=== PATIENT | female | born 1960 | race Caucasian/White ===

== ENCOUNTER → 2018-02-23 | Outpatient (CLI) | payer OTHER ==
[~2018-02-23] MED LIST: BUPR-83 PO; CHOL20005 PO; MULT-506 PO; SERT50TA PO; SYN125 PO
[2018-02-23 12:10] LABS: BASO % 0.7 %; BASO ABS # 0.03 K/uL (0-0.2); EOS % 2.5 %; EOS ABS # 0.11 K/uL (0-0.5); HEMATOCRIT 42.4 % (37-47); HEMOGLOBIN 14.2 g/dL (12.0-16.0); IG# 0.02 K/uL (0.00-0.02); LYMPH ABS # 1.63 K/uL (1.2-3.4); MEAN CELL VOLUME 94.2 fL (80-100); MEAN CORPUSCULAR HEMOGLOBIN 31.6 pg (25-34); MEAN CORPUSCULAR HGB CONC 33.5 g/dl (32-36); MEAN PLATELET VOLUME 9.7 fL (7.4-10.4); MONO % 7.3 %; MONO ABS # 0.32 K/uL (0.11-0.59); NEUT ABS # 2.29 K/uL (1.4-6.5); PLATELET COUNT 194 K/uL (130-400); RED CELL DISTRIBUTION WIDTH CV 13.2 % (11.5-14.5); RED CELL DISTRIBUTION WIDTH SD 45.5 fL (36.4-46.3)
[2018-02-23 12:47] LABS: ALBUMIN 3.7 gm/dl (3.4-5.0); ALT/SGPT 52 U/L (12-78); AST/SGOT 28 U/L (15-37); BLOOD UREA NITROGEN 15 mg/dl (7-18); CALCIUM 8.9 mg/dl (8.5-10.1); CARBON DIOXIDE 29 mmol/L (21-32); CHOLESTEROL 188 mg/dl (0-200); CREATININE 0.77 mg/dl (0.60-1.20); GLUCOSE 88 mg/dl (70-99); POTASSIUM 4.2 mmol/L (3.5-5.1); SODIUM 140 mmol/L (136-145)
[2018-02-23 12:57] LABS: ALKALINE PHOSPHATASE 74 U/L (45-117); LDL CHOLESTEROL CALCULATED 98 mg/dl; TOTAL PROTEIN 7.8 gm/dl (6.4-8.2)
== END | disposition home or self-care (01) ==
LOC: C.LAB1850 10:29
PROVIDERS: ATTEND Nurse Practitioner
DX: Z13.220 Encounter for screening for lipoid disorders (principal); Z13.228 Encounter for screening for other metabolic disorders; E03.9 Hypothyroidism, unspecified

== ENCOUNTER 2021-10-30 07:15 | Inpatient (IN) ==
[2021-10-30] MEDS ORDERED: dexAMETHasone**PF** 10 MG/ML VIAL IV ONE (07:56)
[2021-10-30] MEDS ORDERED: SODIUM CHLORIDE 0.9% 1000ML 1,000 ML IV ONE (07:56)
[2021-10-30] MEDS ORDERED: ONDANSETRON INJ 2 MG/ML 2 ML VIAL IV STA (07:56)
--- NOTE | 2021-10-30 08:29 | Emergency Department Note ---
History of Present Illness General Chief complaint: Dizziness Stated complaint: COVID+,DIZZY,NAUSEA Time Seen by Provider: 10/30/21 07:40 Source: patient Mode of arrival: ambulatory Limitations: no limitations History of Present Illness Maximum Pain Intensity: 10 This patient is a 61-year-old female who presents to the emergency department for evaluation of shortness of breath and COVID-19. Patient states that she was diagnosed with COVID-19 10 days ago. She states she has been feeling short of breath, especially with any exertion. She is having difficulty getting around at home. She states that she has been vomiting and has not kept anything down in 5 to 6 days. She has had some general fatigue, body aches and fevers. She was seen here a few days ago and sent home. She states that she is not feeling any better and feels her symptoms are worsening. She has not been checking her oxygen levels at home. She states she has been using nausea medication but it is not helping. Patient did not receive a COVID-19 vaccination. Home Medications Medication Instructions Recorded Confirmed Type albuterol sulfate 90 mcg/actuation 2 puff INHALATION DAILY 10/30/21 10/30/21 History aerosol inhaler alendronate 70 mg tablet 70 mg PO WK 10/30/21 10/30/21 History benzonatate 100 mg capsule 100 mg PO DAILY PRN 10/30/21 10/30/21 History celecoxib 200 mg capsule 200 mg PO DAILY 10/30/21 10/30/21 History levothyroxine 125 mcg tablet 125 mcg PO DAILY 10/30/21 10/30/21 History ondansetron 4 mg disintegrating 4 mg PO DAILY PRN 10/30/21 10/30/21 History tablet Allergies Allergy/AdvReac Type Severity Reaction Status Date / Time morphine Allergy Mild ITCHING Verified 09/01/16 21:42 latex Allergy Unknown RASH Verified 09/01/16 21:42 Past Med/Surg History Medical History Hypothyroid Kidney stones Psoriatic arthritis Surgical History H/O arthroscopic knee surgery Family History (Updated 10/30/21 @ 14:45 by MADDISON Brown) Father Diabetes Heart disease Social History (Updated 10/30/21 @ 14:46 by MADDISON Brown) Smoking Status: Former smoker Second Hand Exposure: No; Hx Alcohol Use: No Hx Substance Use: No Preferred Language: Yi Communication Ability: Effective Screen Printer Required: No Beliefs That Will Affect Care: None Current Living Situation: Alone Feels Safe at Home: Yes Safety Concerns: Feels Safe At This Time Assistive Devices: Denture - Upper and Glasses Review of Systems A total of 10 systems reviewed and were otherwise negative Physical Exam Vital Signs Vital Signs - 24 hr 10/30/21 07:18 10/30/21 08:07 10/30/21 08:46 Temperature 37.1 C Temperature Source Skin Pulse Rate 95 H 95 H Pulse Rate from SpO2 Sensor Pulse Rhythm Regular Respiratory Rate 18 18 Blood Pressure 132/88 Blood Pressure Mean 102 Pulse Oximetry 91 97 97 Oxygen Delivery Method Room Air Nasal Cannula Nasal Cannula Oxygen Flow Rate 2 2 Sepsis Recent Fever Within 48 Hours No Sepsis New/Unexplained Change in Mental Status No Sepsis Action Taken by Nursing No Action Required 10/30/21 08:52 10/30/21 09:00 10/30/21 09:30 Temperature Temperature Source Pulse Rate 84 83 83 Pulse Rate from SpO2 Sensor 83 84 86 Pulse Rhythm Respiratory Rate 25 H 27 H 26 H Blood Pressure 135/82 134/92 142/88 H Blood Pressure Mean 99 106 106 Pulse Oximetry 96 98 95 Oxygen Delivery Method Nasal Cannula Oxygen Flow Rate 2 Sepsis Recent Fever Within 48 Hours Sepsis New/Unexplained Change in Mental Status Sepsis Action Taken by Nursing VITALS: Vitals are noted on the nurse's note and reviewed by myself. GENERAL: This is a 61-year-old female, in mild distress, uncomfortable appear ing. SKIN: The skin was without rashes. HEAD: Normocephalic atraumatic. EARS: External auditory canals clear, tympanic membranes pearly [place] without erythema or effusion bilaterally. EYES: Pupils equal round and reactive to light and accommodation. NOSE: Patent, turbinates without inflammation or discharge. MOUTH: Mucous membranes dry. NECK: Supple without nuchal rigidity. No lymphadenopathy. HEART: Regular rate and rhythm without murmurs gallops or rubs. LUNGS: Breath sounds diminished throughout. ABDOMEN: Positive bowel sounds x 4. Soft, nontender to palpation. No guarding or rebound tenderness. NEURO: Patient was alert and oriented to person place and time. Course Administered Medications Acetaminophen (Acetaminophen 325 Mg Tab) 650 mg PO Q4H PRN PRN Reason: pain/fever Stop: 11/29/21 17:27 Last Admin: 10/30/21 18:26 Dose: 650 mg Documented by: [id number] Enoxaparin Sodium (Enoxaparin Inj 40 Mg/0.4 Ml Syr) 40 mg SQ Q24H SUZANNE Stop: 11/29/21 14:39 Last Admin: 10/30/21 16:55 Dose: 40 mg Documented by: [id number] Azithromycin 500 mg/ Dextrose 255 mls @ 125 mls/hr IV DAILY SUZANNE Stop: 11/06/21 10:59 Last Infusion: 10/30/21 14:15 Dose: 0 mls/hr Documented by: [id number] Admin: 10/30/21 11:54 Dose: 125 mls/hr Documented by: [id number] Discontinued Medications Acetaminophen (Acetaminophen 500 Mg Tab) 1,000 mg PO NOW STA Stop: 10/30/21 11:51 Last Admin: 10/30/21 11:53 Dose: 1,000 mg Documented by: [id number] Acetaminophen (Acetaminophen 500 Mg Tab) Confirm Administered Dose 1,000 mg .ROUTE .STK-MED ONE Stop: 10/30/21 11:53 Last Admin: 10/30/21 11:54 Dose: Not Given Documented by: [id number] Ceftriaxone Sodium (Ceftriaxone Sodium 1000mg/50ml D5w) Confirm Administered Dose 1,000 mg IV .STK-MED ONE Stop: 10/30/21 11:31 Last Admin: 10/30/21 11:38 Dose: 1,000 mg Documented by: [id number] Dexamethasone Sodium Phosphate (DexamethasonePf 10 Mg/Ml Vial) 6 mg IV NOW ONE Stop: 10/30/21 07:57 Last Admin: 10/30/21 08:37 Dose: 6 mg Documented by: [id number] Sodium Chloride (Nss 1000ml) 1,000 mls @ 999 mls/hr IV .Q1H1M ONE Stop: 10/30/21 08:56 Last Infusion: 10/30/21 09:38 Dose: 0 mls/hr Documented by: [id number] Admin: 10/30/21 08:37 Dose: 999 mls/hr Documented by: [id number] Remdesivir 200 mg/ Sodium (Chloride) 250 mls @ 125 mls/hr IV ONE STA; Protocol Stop: 10/30/21 12:47 Last Infusion: 10/30/21 16:57 Dose: 0 mls/hr Documented by: [id number] Admin: 10/30/21 14:16 Dose: 125 mls/hr Documented by: [id number] Ondansetron HCl (Ondansetron Inj 2 Mg/Ml 2 Ml Vial) 4 mg IV NOW STA Stop: 10/30/21 07:57 Last Admin: 10/30/21 08:37 Dose: 4 mg Documented by: [id number] Sodium Chloride (Sodium Chloride 0.9% 10ml Flush) 30 ml IV Q24H SUZANNE Stop: 11/03/21 10:46 Last Admin: 10/30/21 16:55 Dose: 30 ml Documented by: [id number] Medical Decision Making Differential Diagnosis COVID-19, reactive airway disease, pneumonia, pneumothorax, COPD, CHF, infections, cardiac ischemia, pulmonary embolism, musculoskeletal, gastrointestinal, as well as other pathologies. Medical Records Attestation: I reviewed the patient's medical records. Home Medications Current Medication List: was personally reviewed by me Laboratory Data Attestation: I reviewed the patient's lab results. Result diagrams: 10/30/21 08:32 10/30/21 08:32 Lab Results 10/30/21 10/30/21 10/30/21 Range/Units 08:32 08:32 08:32 WBC 4.30 L (4.8-10.8) K/uL RBC 4.47 (4.2-5.4) M/uL Hgb 13.7 (12.0-16.0) g/dL Hct 41.4 (37-47) % MCV 92.6 (80-100) fL MCH 30.6 (25-34) pg MCHC 33.1 (32-36) g/dL RDW Std Deviation 45.0 (36.4-46.3) fL RDW Coeff of Bailey 13.2 (11.5-14.5) % Plt Count 131 (130-400) K/uL MPV 9.6 (7.4-10.4) fL Immature Gran % (Auto) 0.7 % Neut % (Auto) 82.1 % Lymph % (Auto) 13.3 % [place] % (Auto) 3.7 % Eos % (Auto) 0.0 % Baso % (Auto) 0.2 % Neut # (Auto) 3.53 (1.4-6.5) K/uL Lymph # (Auto) 0.57 L (1.2-3.4) K/uL [place] # (Auto) 0.16 (0.11-0.59) K/uL Eos # (Auto) 0.00 (0-0.5) K/uL Baso # (Auto) 0.01 (0-0.2) K/uL Immature Gran # (Auto) 0.03 H (0.00-0.02) K/uL D-Dimer (0-500) ug/L FEU Sodium 139 (136-145) mmol/L Potassium 3.9 (3.5-5.1) mmol/L Chloride 107 (98-107) mmol/L Carbon Dioxide 26 (21-32) mmol/L Anion Gap 6.0 (3-11) BUN 10 (7-18) mg/dl Creatinine 0.65 (0.6-1.2) mg/dl Est Cr Clr Drug Dosing Not Reportable Est GFR ( Amer) 111.1 ml/min Est GFR (Non-Af Amer) 95.8 ml/min BUN/Creatinine Ratio 15.4 (10-20) Glucose 115 H (70-99) mg/dl Calcium 8.3 L (8.5-10.1) mg/dl Total Bilirubin 0.5 (0.2-1) mg/dl AST 58 H (15-37) U/L ALT 43 (12-78) Alkaline Phosphatase 55 (45-117) U/L C-Reactive Protein 10.80 H (0-0.29) mg/dl Total Protein 7.4 (6.4-8.2) gm/dl Albumin 2.9 L (3.4-5.0) gm/dl Globulin 4.5 H (2.5-4.0) gm/dl Albumin/Globulin Ratio 0.6 L (0.9-2) Procalcitonin 2.38 H (0-0.5) ng/ml Specimen Hemolysis 10/30/21 Range/Units 08:32 WBC (4.8-10.8) K/uL RBC (4.2-5.4) M/uL Hgb (12.0-16.0) g/dL Hct (37-47) % MCV (80-100) fL MCH (25-34) pg MCHC (32-36) g/dL RDW Std Deviation (36.4-46.3) fL RDW Coeff of Bailey (11.5-14.5) % Plt Count (130-400) K/uL MPV (7.4-10.4) fL Immature Gran % (Auto) % Neut % (Auto) % Lymph % (Auto) % [place] % (Auto) % Eos % (Auto) % Baso % (Auto) % Neut # (Auto) (1.4-6.5) K/uL Lymph # (Auto) (1.2-3.4) K/uL [place] # (Auto) (0.11-0.59) K/uL Eos # (Auto) (0-0.5) K/uL Baso # (Auto) (0-0.2) K/uL Immature Gran # (Auto) (0.00-0.02) K/uL D-Dimer 730 H* (0-500) ug/L FEU Sodium (136-145) mmol/L Potassium (3.5-5.1) mmol/L Chloride (98-107) mmol/L Carbon Dioxide (21-32) mmol/L Anion Gap (3-11) BUN (7-18) mg/dl Creatinine (0.6-1.2) mg/dl Est Cr Clr Drug Dosing Est GFR ( Amer) ml/min Est GFR (Non-Af Amer) ml/min BUN/Creatinine Ratio (10-20) Glucose (70-99) mg/dl Calcium (8.5-10.1) mg/dl Total Bilirubin (0.2-1) mg/dl AST (15-37) U/L ALT (12-78) Alkaline Phosphatase (45-117) U/L C-Reactive Protein (0-0.29) mg/dl Total Protein (6.4-8.2) gm/dl Albumin (3.4-5.0) gm/dl Globulin (2.5-4.0) gm/dl Albumin/Globulin Ratio (0.9-2) Procalcitonin (0-0.5) ng/ml Specimen Hemolysis Imaging Data Attestation: I personally reviewed and interpreted this imaging study as follows: Radiologist's Impression: Chest X-Ray 10/30/21 07:57 XR chest 1V portable CLINICAL HISTORY: covid, sob COMPARISON STUDY: Chest radiograph October 25, 2021. FINDINGS: There is no pneumothorax or pleural effusion. Cardiac size is within normal limits. Mediastinal contours are unremarkable. Moderate multifocal bilateral airspace opacities have developed since prior exam. IMPRESSION: Interval development of moderate bilateral airspace opacities c onsistent with viral pneumonia. Radiographic follow-up to ensure resolution is recommended. ACT 112: Negative or not required by law. Electronically signed by: Brandin Seymour M.D. 10/30/2021 8:28 AM MDM Narrative Continuous monitoring coordinator: Order was placed for continuous monitoring coordinator. Patient was placed on the monitoring coordinator. Patient was noted to be in normal sinus rhythm at an initial rate of 84 bpm. The patient is a 61-year-old female who presents today complaining of shortness of breath. Patient already tested positive for COVID-19. Labs are consistent with this, showing a leukopenia. There were no concerning electrolyte abnormalities. Procalcitonin elevated at 2.38. CRP elevated at 10.8. Chest x- ray consistent with COVID-19 pneumonia. Patient was found to be slightly hypoxic at rest, 89%, however with very few steps she desaturated into the low 80s. She was placed on oxygen via nasal cannula, given dexamethasone and the case was discussed with the [facility]. Impression & Plan Pneumonia due to COVID-19 virus, Acute respiratory failure with hypoxia Discharge Plan Visit Data Chief Complaint: Dizziness Stated Complaint: COVID+,DIZZY,NAUSEA ED Provider: Armando York ED Midlevel Provider: Lorraine Medrano Discharge Problem: Pneumonia due to COVID-19 virus, Acute respiratory failure with hypoxia
--- NOTE | 2021-10-30 08:30 | XRay Report ---
XR chest 1V portable CLINICAL HISTORY: covid, sob COMPARISON STUDY: Chest radiograph October 25, 2021. FINDINGS: There is no pneumothorax or pleural effusion. Cardiac size is within normal limits. Mediast inal contours are unremarkable. Moderate multifocal bilateral airspace opacities have developed since prior exam. IMPRESSION: Interval development of moderate bilateral airspace opacities consistent with viral pneu monia. Radiographic follow-up to ensure resolution is recommended. ACT 112: Negative or not required by law. Electronically signed by: Brandin Seymour M.D. 10/30/2021 8:28 AM
[2021-10-30 08:50] LABS: Hematocrit (blood only) 41.4 % (37-47); Hemoglobin 13.7 g/dL (12.0-16.0); Mean Corpuscular Hemoglobin 30.6 pg (25-34); Mean Corpuscular Hgb Conc 33.1 g/dL (32-36); Mean Corpuscular Volume 92.6 fL (80-100); Mean Platelet Volume 9.6 fL (7.4-10.4); Platelet Count 131 K/uL (130-400); RDW Coefficient of Variation 13.2 % (11.5-14.5); Red Blood Count 4.47 M/uL (4.2-5.4)
[2021-10-30 09:12] LABS: D Dimer 730 ug/L FEU (0-500)
[2021-10-30 09:19] LABS: Basophils # (auto) 0.01 K/uL (0-0.2); Basophils % (auto) 0.2 %; Immature Granulocytes # (auto) 0.03 K/uL (0.00-0.02); Immature Granulocytes % (auto) 0.7 %; Lymphocytes # (auto) 0.57 K/uL (1.2-3.4); Lymphocytes % (auto) 13.3 %; Monocytes # (auto) 0.16 K/uL (0.11-0.59); Monocytes % (auto) 3.7 %; Neutrophils # (auto) 3.53 K/uL (1.4-6.5); Neutrophils % (auto) 82.1 %
[2021-10-30 09:25] LABS: Alanine Aminotransferase 43 (12-78); Albumin Globulin Ratio 0.6 (0.9-2); Albumin Level 2.9 gm/dl (3.4-5.0); Alkaline Phosphatase 55 U/L (45-117); Aspartate Aminotransferase 58 U/L (15-37); BUN Creatinine Ratio 15.4 (10-20); Bilirubin,Total 0.5 mg/dl (0.2-1); Blood Urea Nitrogen 10 mg/dl (7-18); Calcium 8.3 mg/dl (8.5-10.1); Carbon Dioxide 26 mmol/L (21-32); Chloride 107 mmol/L (98-107); Est GFR (African American) 111.1 ml/min; Est GFR (Non-African American) 95.8 ml/min; Globulin 4.5 gm/dl (2.5-4.0); Glucose 115 mg/dl (70-99); Potassium 3.9 mmol/L (3.5-5.1); Sodium 139 mmol/L (136-145); Total Protein 7.4 gm/dl (6.4-8.2)
[2021-10-30] MEDS ORDERED: SODIUM CHLORIDE 0.9% 10ML FLUSH IV SCH (10:45)
[2021-10-30] MEDS ORDERED: cefTRIAXone SODIUM 1,000 MG in DEXTROSE 5% 50 ML IV SCH (10:45)
[2021-10-30] MEDS ORDERED: REMDESIVIR 200 MG in SODIUM CHLORIDE 0.9% 210 ML IV STA (10:48)
[2021-10-30] MEDS ORDERED: cefTRIAXone SODIUM 1000MG/50ML D5W IV ONE (11:30)
[2021-10-30] MEDS ORDERED: ACETAMINOPHEN 500 MG TAB PO STA (11:50)
[2021-10-30] MEDS ORDERED: ACETAMINOPHEN 500 MG TAB ONE (11:52)
[2021-10-30] MEDS: AZITHROMYCIN 500 MG in DEXTROSE 5% 250 ML IV SCH (11:54)
[2021-10-30 12:38] LABS: Influenza A virus by PCR Negative (Neg); Influenza B virus by PCR Negative (Neg); RSV by PCR Negative (Neg)
[2021-10-30 12:40] LABS: SARS CoV2 RNA(COVID-19) InHosp POSITIVE (Negative)
[2021-10-30] MEDS ORDERED: BENZONATATE 100 MG CAPSULE PO PRN (14:40)
[2021-10-30] MEDS ORDERED: ALBUT/IPRATROP 3MG/0.5MG NEB 3 ML VIAL NEB PRN (14:40)
[2021-10-30] MEDS ORDERED: ONDANSETRON INJ 2 MG/ML 2 ML VIAL IV PRN (14:40)
--- NOTE | 2021-10-30 14:42 | History & Physical Report ---
Date of Service October 30, 2021 Assessment & Plan (1) Acute respiratory failure with hypoxia: (2) Pneumonia due to COVID-19 virus: Plan: -Admit to [facility] with telemetry -Patient presenting from home with reports of worsening shortness of breath, hypoxia, nausea. Per her report, tested positive on 10/23 at [facility] for COVID-19. -In the ED, patient was hypoxic on room air with ambulation at 84%, currently saturating well on 2 L of oxygen via nasal cannula -CXR consistent with COVID-19 pneumonia -S/p dexamethasone 6 mg IV in ED, continue dexamethasone 6 mg IV daily -Start remdesivir -Given elevated procalcitonin, will start IV ceftriaxone and IV azithromycin -Continue supportive care with incentive spirometer, flutter valve, as needed nebs -Noted mildly elevated D-dimer, patient reports allergy to IV contrast dye. Will hold on CTA at this time. If hypoxia worsens, consider CTA with premedication. (3) Hypothyroidism: Plan: -Continue levothyroxine (4) Psoriatic arthritis: Plan: -Follows with Dr. Moore -Patient reports that Xeljanz was stopped about 2 months ago (5) DVT prophylaxis: Admission and Anticipated Discharge Date Admission Date: October 30, 2021 History of Present Illness Chief Complaint: Shortness of breath Primary Care Provider: Sandy Laboy MD 61-year-old female with PMH hypothyroidism, psoriatic arthritis, and other problems to below who presents the ED for evaluation of shortness of breath. Patient has a positive for COVID-19 on 10/23 at [facility] per her report. Patient reports being sick a few days prior to that. Symptoms initially were generalized weakness, poor appetite, nausea. Patient seen in the ED on 10/25 and had an unremarkable work-up and was discharged home with pulse oximeter. She did not receive COVID-19 directed therapies during that ED visit. Patient reports that today her oxygen levels were dropping down into the 80s and she has severe shortness of breath with exertion. She continues to have a very poor appetite with nausea and dry heaves. Reports a dry nonproductive cough. No chest pain. Denies lightheadedness, dizziness, diaphoresis, syncopal events. No abdominal pain. Denies fevers and chills. No urinary symptoms. In the ED, patient was hypoxic on room air with ambulation 84%, currently saturating well on 2 L of oxygen via nasal cannula. CXR shows Interval development of moderate bilateral airspace opacities consistent with viral pneumonia. Patient was given Tylenol, IV dexamethasone 6 mg, IV Zofran, IVF. Allergies Allergy/AdvReac Type Severity Reaction Status Date / Time morphine Allergy Mild ITCHING Verified 09/01/16 21:42 latex Allergy Unknown RASH Verified 09/01/16 21:42 Home Medications Medication Instructions Recorded Confirmed Type albuterol sulfate 90 mcg/actuation 2 puff INHALATION DAILY 10/30/21 10/30/21 History aerosol inhaler alendronate 70 mg tablet 70 mg PO WK 10/30/21 10/30/21 History benzonatate 100 mg capsule 100 mg PO DAILY PRN 10/30/21 10/30/21 History celecoxib 200 mg capsule 200 mg PO DAILY 10/30/21 10/30/21 History levothyroxine 125 mcg tablet 125 mcg PO DAILY 10/30/21 10/30/21 History ondansetron 4 mg disintegrating 4 mg PO DAILY PRN 10/30/21 10/30/21 History tablet Past Med/Surg History Medical History Hypothyroid Kidney stones Psoriatic arthritis Surgical History H/O arthroscopic knee surgery Family History (Updated 10/30/21 @ 14:45 by MADDISON Brown) Father Diabetes Heart disease Social History (Updated 10/30/21 @ 14:46 by MADDISON Brown) Smoking Status: Former smoker Second Hand Exposure: No; Hx Alcohol Use: No Hx Substance Use: No Preferred Language: Bruneian Communication Ability: Effective Bobbin Trucker Required: No Beliefs That Will Affect Care: None Current Living Situation: Alone Feels Safe at Home: Yes Safety Concerns: Feels Safe At This Time Assistive Devices: Denture - Upper and Glasses Review of Systems Review of Systems: ROS per HPI, all other systems reviewed and negative Physical Exam Physical Exam: Please refer to Dr. Alcaraz's addendum for physical exam Results & Data Results & Data ([facility]) Vital Signs (Past 12 Hours) Vital Signs Temp Pulse Pulse Resp BP BP Pulse Ox 10/30/21 14:00 72 26 H 124/84 93 10/30/21 13:35 79 54 H 10/30/21 13:27 37.6 C H 10/30/21 13:00 71 26 H 94 10/30/21 12:30 74 28 H 10/30/21 12:00 77 24 144/95 H 95 10/30/21 11:34 39.0 C H 82 81 22 134/85 94 10/30/21 11:30 83 19 134/85 94 10/30/21 11:00 76 28 H 95 10/30/21 10:30 80 26 H 131/78 95 10/30/21 10:10 93 10/30/21 09:30 83 26 H 142/88 H 95 10/30/21 09:00 83 27 H 134/92 98 10/30/21 08:52 84 25 H 135/82 96 10/30/21 08:46 95 H 18 97 10/30/21 08:07 97 10/30/21 07:18 37.1 C 95 H 18 132/88 91 Laboratory Results Laboratory Results - last 24 hr 10/30/21 10/30/21 10/30/21 08:32 08:32 08:32 WBC 4.30 L RBC 4.47 Hgb 13.7 Hct 41.4 MCV 92.6 MCH 30.6 MCHC 33.1 RDW Std Deviation 45.0 RDW Coeff of Bailey 13.2 Plt Count 131 MPV 9.6 Immature Gran % (Auto) 0.7 Neut % (Auto) 82.1 Lymph % (Auto) 13.3 [place] % (Auto) 3.7 Eos % (Auto) 0.0 Baso % (Auto) 0.2 Neut # (Auto) 3.53 Lymph # (Auto) 0.57 L [place] # (Auto) 0.16 Eos # (Auto) 0.00 Baso # (Auto) 0.01 Immature Gran # (Auto) 0.03 H D-Dimer Sodium 139 Potassium 3.9 Chloride 107 Carbon Dioxide 26 Anion Gap 6.0 BUN 10 Creatinine 0.65 Est Cr Clr Drug Dosing Not Reportable Est GFR ( Amer) 111.1 Est GFR (Non-Af Amer) 95.8 BUN/Creatinine Ratio 15.4 Glucose 115 H Calcium 8.3 L Total Bilirubin 0.5 AST 58 H ALT 43 Alkaline Phosphatase 55 C-Reactive Protein 10.80 H Total Protein 7.4 Albumin 2.9 L Globulin 4.5 H Albumin/Globulin Ratio 0.6 L Procalcitonin 2.38 H Specimen Hemolysis SARS-CoV-2 (PCR) Influenza Type A (PCR) Influenza Type B (PCR) RSV (RT-PCR) 10/30/21 10/30/21 08:32 11:41 WBC RBC Hgb Hct MCV MCH MCHC RDW Std Deviation RDW Coeff of Bailey Plt Count MPV Immature Gran % (Auto) Neut % (Auto) Lymph % (Auto) [place] % (Auto) Eos % (Auto) Baso % (Auto) Neut # (Auto) Lymph # (Auto) [place] # (Auto) Eos # (Auto) Baso # (Auto) Immature Gran # (Auto) D-Dimer 730 H* Sodium Potassium Chloride Carbon Dioxide Anion Gap BUN Creatinine Est Cr Clr Drug Dosing Est GFR ( Amer) Est GFR (Non-Af Amer) BUN/Creatinine Ratio Glucose Calcium Total Bilirubin AST ALT Alkaline Phosphatase C-Reactive Protein Total Protein Albumin Globulin Albumin/Globulin Ratio Procalcitonin Specimen Hemolysis SARS-CoV-2 (PCR) POSITIVE A* Influenza Type A (PCR) Negative Influenza Type B (PCR) Negative RSV (RT-PCR) Negative Diagnostic Findings Chest X-Ray 10/30/21 07:57 XR chest 1V portable CLINICAL HISTORY: covid, sob COMPARISON STUDY: Chest radiograph October 25, 2021. FINDINGS: There is no pneumothorax or pleural effusion. Cardiac size is within normal limits. Mediastinal contours are unremarkable. Moderate multifocal bilateral airspace opacities have developed since prior exam. IMPRESSION: Interval development of moderate bilateral airspace opacities consistent with viral pneumonia. Radiographic follow-up to ensure resolution is recommended. ACT 112: Negative or not required by law. Electronically signed by: Brandin Seymour M.D. 10/30/2021 8:28 AM Code Status & VTE Plan VTE Prophylaxis Plan VTE Prophylaxis will be ordered: Yes Supervising Physician Co-Signing Physician Notes Patient is a 61-year-old female with history of hypothyroidism, psoriatic arthritis and other medical problems presents with history of worsening shortness of breath, generalized weakness, poor appetite and nausea since last few days. While in ED she was found to be hypoxic, on room air. Also states having normal expectorant cough. Please review HPI for complete details of presentation. Chest x-ray showed development of moderate bilateral airspace opacities consistent with viral pneumonia. Blood work suggestive of mild leukopenia, D-dimer elevated at 730, mild elevation of AST 58, CRP 10.80, procalcitonin 2.38. He was tested positive for Covid. Physical Exam: Vitals signs as noted above General Appearance:Obese, no apparent distress Head: normocephalic, Atraumatic Eyes: normal inspection, EOMI Neck: supple, Trachea midline Respiratory/Chest: Decreased breath sounds, basal crackles, No accessory muscle use Cardiovascular: S1, S2, No murmur Abdomen/GI:Soft, Non tender, Bowel sounds present Extremities/Musculoskeletal:normal inspection, no edema Neurologic/Psych:AAOX3, grossly no focal neurological deficits Skin: normal color, warm Acute respiratory failure with hypoxia Multifocal COVID-19 pneumonia Agree with starting dexamethasone, remdesivir Oxygen supplementation as needed Lasix, nebs as needed Encouraged to perform Agree with antibiotics given elevated procalcitonin I personally reviewed the record. Patient is interviewed and examined at bedside. Patient's care is coordinated with Shannon Ng PEDIATRICS TEACHER. Please refer to the documentation above for details of patient's presentation and for discussion of other issues.
--- NOTE | 2021-10-30 16:02 | Electrocardiogram Report ---
Test Reason : Blood Pressure : / mmHG Vent. Rate : 088 BPM Atrial Rate : 088 BPM P-R Int : 160 ms QRS Dur : 088 ms QT Int : 362 ms P-R-T Axes : 055 -22 027 degrees QTc Int : 438 ms Normal sinus rhythm Possible Left atrial enlargement Borderline ECG When compared with ECG of 25-OCT-2021 17:41, T wave inversion now evident in Inferior leads Confirmed by Amandeep Levi ([id number]) on 10/30/2021 4:01:33 PM Referred By: REFERRED SELF Confirmed By:Amandeep Levi
[2021-10-30] MEDS: ENOXAPARIN INJ 40 MG/0.4 ML SYR SQ SCH (16:55)
[2021-10-30] MEDS: ACETAMINOPHEN 325 MG TAB PO PRN (18:26)
[2021-10-30] MEDS: cefTRIAXone SODIUM 2,000 MG in DEXTROSE 5% 50 ML IV SCH (23:14)
[2021-10-31 06:28] LABS: Hematocrit (blood only) 41.3 % (37-47); Hemoglobin 13.4 g/dL (12.0-16.0); Mean Corpuscular Hemoglobin 30.6 pg (25-34); Mean Corpuscular Hgb Conc 32.4 g/dL (32-36); Mean Corpuscular Volume 94.3 fL (80-100); Mean Platelet Volume 9.7 fL (7.4-10.4); Platelet Count 167 K/uL (130-400); RDW Coefficient of Variation 13.5 % (11.5-14.5); RDW Standard Deviation 46.7 fL (36.4-46.3); Red Blood Count 4.38 M/uL (4.2-5.4); White Blood Count 4.88 K/uL (4.8-10.8)
[2021-10-31] MEDS: LEVOTHYROXINE SODIUM 125 MCG TABLET PO SCH (06:39)
[2021-10-31 07:01] LABS: BUN Creatinine Ratio 16.9 (10-20); Calcium 8.5 mg/dl (8.5-10.1); Creatinine Clr Calc Pharmacy 83.8 ml/min; Est GFR (African American) 95.1 ml/min; Est GFR (Non-African American) 82.1 ml/min; Potassium 4.2 mmol/L (3.5-5.1)
[2021-10-31] MEDS: AZITHROMYCIN 500 MG in DEXTROSE 5% 250 ML IV SCH (07:30)
[2021-10-31] MEDS: dexAMETHasone 6 MG in SYRINGE 0 ML IV SCH (07:31)
[2021-10-31] MEDS: REMDESIVIR 100 MG in SODIUM CHLORIDE 0.9% 230 ML IV SCH (11:03)
[2021-10-31] MEDS ORDERED: guaiFENesin/CODEINE 100MG/10MG 5ML UDC PO STA (11:44)
--- NOTE | 2021-10-31 11:47 | Hospitalist Progress Note ---
Date of Service October 31, 2021 Assessment & Plan (1) Acute respiratory failure with hypoxia: Plan: Secondary to Covid pneumonia with possible superimposed bacterial pneumonia. Elevated procalcitonin on admission prompted coadministration of antibiotics and antivirals. Continue this along with dexamethasone. Supportive care with antitussives and Mucinex as requested. Prone as tolerated. Continue oxygen supplementation with goal saturation greater than 90%. (2) Pneumonia due to COVID-19 virus: Plan: Mildly elevated D-dimer noted on admission, 730. Patient reports allergy to IV contrast dye and CTA was deferred. D dimer is known to be elevated both in the setting of COVID infection and in a pneumonia. (3) Hypothyroidism: Plan: chronic, stable, Continue levothyroxine per home regimen. (4) Psoriatic arthritis: Plan: -chronic, stable -Follows with Dr. Moore -Patient reports that Xeljanz was stopped about 2 months ago (5) DVT prophylaxis: Plan: Lovenox Full Code Dispo-to home when medically stable Sharonda Tam DO [facility] Hospitalist Admission and Anticipated Discharge Date Admission Date: October 30, 2021 Subjective 61 yo F presents with covid pneumonia reports congestion and cough States she has a headache Tolerating p.o. Afebrile Denies significant shortness of breath and feels better since admission Review of Systems Review of Systems: All systems reviewed and negative except as indicated above. Physical Exam Physical Exam: CONSTITUTIONAL: WNWD, vitals as above, generally well- appearing, NAD EYES: normal conjunctivae, no scleral icterus ENT: external ear and nose normal, MMM NECK: trachea midline RESPIRATORY: clear to auscultation bilaterally, no crackles, rales or wheezes, normal respiratory effort CARDIOVASCULAR: regular rate and rhythm, S1 and 2 heard without murmurs, gallops or rubs, no JVD, no peripheral edema CHEST: inspection of chest was normal GASTROINTESTINAL: soft, nontender, ND, no guarding MUSCULOSKELETAL: strength 5/5 throughout, head is normocephalic and atraumatic SKIN: warm and dry NEUROLOGIC: No facial palsy, no dysarthria. CN 2-12 grossly intact, no sensory deficit, normal cognition, normal speech, no tremor, no gross focal deficit. PSYCHIATRIC: alert cooperative and oriented to person, place and time. Euthymic mood, makes good eye contact, language grossly intact, recent and remote memory grossly intact. Results & Data Results & Data ([facility]) Vital Signs (Past 12 Hours) Vital Signs Temp Pulse Pulse Resp BP BP Pulse Ox 10/31/21 09:18 55 L 10/31/21 08:17 37.0 C 67 16 146/87 H 93 10/31/21 04:12 68 18 155/78 H 96 Laboratory Results Short CBC 10/31/21 Range/Units 05:28 WBC 4.88 (4.8-10.8) K/uL Hgb 13.4 (12.0-16.0) g/dL Hct 41.3 (37-47) % Plt Count 167 (130-400) K/uL BMP 10/31/21 05:28 Sodium 141 Potassium 4.2 Chloride 108 H Carbon Dioxide 28 BUN 13 Creatinine 0.78 Glucose 118 H Calcium 8.5 Medications Administered Current Inpatient Medications Acetaminophen (Acetaminophen 325 Mg Tab) 650 mg PO Q4H PRN PRN Reason: pain/fever Stop: 11/29/21 17:27 Last Admin: 10/30/21 18:26 Dose: 650 mg Documented by: Albuterol (Albut/Ipratrop 3mg/0.5mg Neb 3 Ml Vial) 3 ml NEB Q4R PRN PRN Reason: shotnes of beath Stop: 11/29/21 14:39 Benzonatate (Benzonatate 100 Mg Capsule) 100 mg PO TID [facility] Stop: 11/30/21 13:59 Enoxaparin Sodium (Enoxaparin Inj 40 Mg/0.4 Ml Syr) 40 mg SQ Q24H [facility] Stop: 11/29/21 14:39 Last Admin: 10/30/21 16:55 Dose: 40 mg Documented by: Guaifenesin (Guaifenesin 600 Mg Tabcr) 1,200 mg PO Q12 [facility] Stop: 11/30/21 11:49 Guaifenesin/Codeine Phosphate (Guaifenesin/Codeine 200mg/20mg 10ml Udc) 10 ml PO Q6H PRN PRN Reason: Cough Stop: 11/30/21 11:43 Guaifenesin/Codeine Phosphate (Guaifenesin/Codeine 100mg/10mg 5ml Udc) 10 ml PO NOW STA Stop: 10/31/21 11:45 Azithromycin 500 mg/ Dextrose 255 mls @ 125 mls/hr IV DAILY [facility] Stop: 11/06/21 10:59 Last Infusion: 10/31/21 09:50 Dose: Infused Documented by: Ceftriaxone Sodium 2,000 mg/ (Dextrose) 70 mls @ 140 mls/hr IV Q24H [facility]; Protocol Stop: 11/06/21 22:59 Last Infusion: 10/30/21 23:51 Dose: Infused Documented by: Dexamethasone 6 mg/ Syringe 1.5 mls @ 1 mls/min IV DAILY [facility] Stop: 11/10/21 08:59 Last Admin: 10/31/21 07:31 Dose: 1 mls/min Documented by: Remdesivir 100 mg/ Sodium (Chloride) 250 mls @ 250 mls/hr IV Q24H [facility]; Protocol Stop: 11/03/21 12:59 Last Admin: 10/31/21 11:03 Dose: 250 mls/hr Documented by: Levothyroxine Sodium (Levothyroxine Sodium 125 Mcg Tablet) 125 mcg PO DAILYBB [facility] Stop: 11/30/21 06:29 Last Admin: 10/31/21 06:39 Dose: 125 mcg Documented by: Ondansetron HCl (Ondansetron Inj 2 Mg/Ml 2 Ml Vial) 4 mg IV Q6H PRN PRN Reason: Nausea Stop: 11/29/21 14:39 Sodium Chloride (Sodium Chloride 0.9% 10ml Flush) 30 ml IV Q24H [facility] Stop: 11/03/21 13:01
[2021-10-31] MEDS: SODIUM CHLORIDE 0.9% 10ML FLUSH IV SCH (12:15)
[2021-10-31] MEDS: BENZONATATE 100 MG CAPSULE PO SCH ×2 (12:53→22:04)
[2021-10-31] MEDS: guaiFENesin 600 MG TABCR PO SCH ×2 (12:54→22:04)
[2021-10-31] MEDS: ENOXAPARIN INJ 40 MG/0.4 ML SYR SQ SCH (15:32)
[2021-10-31] MEDS ORDERED: oxyCODONE HCL IR 5 MG TAB (IMMEDIATE RELEASE) PO STA (20:27)
[2021-10-31] MEDS ORDERED: methylPREDNISolone 40 MG in SYRINGE 0 ML IV STA (20:30)
--- NOTE | 2021-10-31 21:22 | CT Scan Report ---
CT head/brain wo con CLINICAL HISTORY: Evaluate for CVA COMPARISON STUDY: 09-05 CT DOSE: 537.48 mGy.cm TECHNIQUE: Standard CT of the Brain was performed without IV contrast. A dose lowering technique was utilized adhering to the principles of ALARA. FINDINGS: Extraaxial space: There is no evidence for subdural hematoma. There are no extra-axial fluid collecti ons. Ventricles and cisterns: The ventricles are normal in size and configuration. There is no evidence f or midline shift or mass effect. Parenchyma: There is no subarachnoid or intraparenchymal hemorrhage. There is no evidence for an acu te infarct or cerebral edema. There is homogeneous attenuation of the brain parenchyma. There are no gross mass lesions. Osseous structures: There is no evidence for an acute fracture. The visualized paranasal sinuses are clear. The mastoid air cells are clear bilaterally. Soft tissues: There is no evidence for focal soft tissue swelling. IMPRESSION: No acute intracerebral pathology. ACT 112: Negative or not required by law. Electronically signed by: Anoop Ashton M.D. 10/31/2021 9:21 PM
[2021-10-31 21:50] LABS: Hematocrit (blood only) 40.6 % (37-47); Hemoglobin 13.8 g/dL (12.0-16.0); Mean Corpuscular Hemoglobin 31.2 pg (25-34); Mean Corpuscular Volume 91.9 fL (80-100); Mean Platelet Volume 9.5 fL (7.4-10.4); Platelet Count 194 K/uL (130-400); RDW Coefficient of Variation 13.4 % (11.5-14.5); RDW Standard Deviation 44.8 fL (36.4-46.3); Red Blood Count 4.42 M/uL (4.2-5.4); White Blood Count 5.61 K/uL (4.8-10.8)
[2021-10-31] MEDS ORDERED: PHARMACIST DISCHARGE MED REC CONSULT PRN (22:06)
[2021-10-31] MEDS ORDERED: ATORVASTATIN 40 MG TAB PO STA (22:09)
[2021-10-31 22:13] LABS: Albumin Level 2.6 gm/dl (3.4-5.0); Calcium 8.3 mg/dl (8.5-10.1); Creatinine Clr Calc Pharmacy 100.6 ml/min; Est GFR (African American) 111.1 ml/min; Est GFR (Non-African American) 95.8 ml/min
[2021-10-31] MEDS: cefTRIAXone SODIUM 2,000 MG in DEXTROSE 5% 50 ML IV SCH (22:13)
[2021-10-31] MEDS ORDERED: SODIUM CHLORIDE 0.9% 1000ML 1,000 ML IV SCH (22:15)
[2021-10-31] MEDS ORDERED: ASPIRIN 81 MG CHEW PO STA (22:15)
[2021-10-31 22:16] LABS: Albumin Globulin Ratio 0.6 (0.9-2); Bilirubin,Total 0.3 mg/dl (0.2-1); Globulin 4.3 gm/dl (2.5-4.0); Total Protein 6.9 gm/dl (6.4-8.2)
[2021-10-31 22:20] LABS: Basophils # (auto) 0.02 K/uL (0-0.2); Basophils % (auto) 0.4 %; Immature Granulocytes # (auto) 0.06 K/uL (0.00-0.02); Immature Granulocytes % (auto) 1.1 %; Lymphocytes # (auto) 0.99 K/uL (1.2-3.4); Lymphocytes % (auto) 17.6 %; Monocytes # (auto) 0.37 K/uL (0.11-0.59); Monocytes % (auto) 6.6 %; Neutrophils # (auto) 4.17 K/uL (1.4-6.5); Neutrophils % (auto) 74.3 %
[2021-11-01] MEDS ORDERED: diphenhydrAMINE 50 MG/ML VIAL IV ONE (00:28)
[2021-11-01] MEDS: LEVOTHYROXINE SODIUM 125 MCG TABLET PO SCH (06:13)
[2021-11-01 07:13] LABS: Hematocrit (blood only) 39.2 % (37-47); Hemoglobin 12.7 g/dL (12.0-16.0); Mean Corpuscular Hemoglobin 30.6 pg (25-34); Mean Corpuscular Hgb Conc 32.4 g/dL (32-36); Mean Corpuscular Volume 94.5 fL (80-100); Mean Platelet Volume 9.5 fL (7.4-10.4); Platelet Count 225 K/uL (130-400); RDW Coefficient of Variation 13.5 % (11.5-14.5); RDW Standard Deviation 46.9 fL (36.4-46.3); Red Blood Count 4.15 M/uL (4.2-5.4); White Blood Count 4.36 K/uL (4.8-10.8)
[2021-11-01 07:46] LABS: BUN Creatinine Ratio 36.2 (10-20); Calcium 8.1 mg/dl (8.5-10.1); Est GFR (Non-African American) 98.4 ml/min; Potassium 3.7 mmol/L (3.5-5.1)
[2021-11-01 07:49] LABS: C Reactive Protein 3.67 mg/dl (0-0.29)
[2021-11-01 07:57] LABS: ALC (manual) 0.95 K/uL (1.2-3.4); ANC (manual) 3.26 K/uL (1.4-6.5); Lymphocytes # (manual) 0.49 K/uL (1.2-3.4); Lymphocytes % (manual) 11.3 %; Metamyelocytes # (manual) 0.04 K/uL (0-0); Metamyelocytes % (manual) 0.9 %; Monocytes # (manual) 0.11 K/uL (0.11-0.59); Monocytes % (manual) 2.6 %; Neutrophils # (manual) 3.26 K/uL (1.4-6.5); Neutrophils % (manual) 74.8 %; Reactive Lymphocytes # (manual) 0.45 K/uL; Reactive Lymphocytes % (manual) 10.4 %
[2021-11-01] MEDS ORDERED: COUGH DROP (SUGAR FREE) LOZ 24 LOZ/1 BOX BUCCAL ONE (08:05)
[2021-11-01] MEDS: BENZONATATE 100 MG CAPSULE PO SCH ×3 (08:11→20:22)
[2021-11-01] MEDS: AZITHROMYCIN 500 MG in DEXTROSE 5% 250 ML IV SCH (08:11)
[2021-11-01] MEDS: ATORVASTATIN 40 MG TAB PO SCH (08:11)
[2021-11-01] MEDS: dexAMETHasone 6 MG in SYRINGE 0 ML IV SCH (08:11)
[2021-11-01] MEDS: guaiFENesin 600 MG TABCR PO SCH ×4 (08:11→20:25)
[2021-11-01] MEDS: ACETAMINOPHEN 325 MG TAB PO PRN (08:18)
--- NOTE | 2021-11-01 08:47 | Hospitalist Progress Note ---
Date of Service November 01, 2021 Assessment & Plan Admission and Anticipated Discharge Date Admission Date: October 30, 2021 Subjective Stroke alert was called last night as patinet mild weakness left side and mild decrease in sensation. [place] neurologist examined patient through tele stroke. As patient symptoms were mild and small risk of bleed patient declined tpa as per Neurologist. Given aspirin, statin gentle fluids. Initial ct head unremarkable. Patient refused further CTA head and neck as she was worried she may not able to lie down. As per nursing staff later her symptoms completely resolved. Ordered echo, Neuroconsult. Can get imaging studies done if patient feeling better. Also ordered ct chest PE study as patient is requiring more oxygen and complained of chest pain earlier. EKG and troponin ok. Continue to monitor in tele. Results & Data Results & Data ([facility]) Vital Signs (Past 12 Hours) Vital Signs Temp Pulse Pulse Resp BP BP Pulse Ox 11/01/21 08:03 36.7 C 58 L 20 135/81 94 11/01/21 04:00 36.4 C L 59 L 20 107/68 95 11/01/21 00:30 57 L 10/31/21 22:58 36.7 C 61 20 111/73 89 L 10/31/21 20:53 75 21 137/82 89 L
--- NOTE | 2021-11-01 08:48 | XRay Report ---
XR chest 1V portable CLINICAL HISTORY: hypoxia. Follow-up bilateral airspace opacities COMPARISON STUDY: 10/30/2021 TECHNIQUE: 1 view of the chest FINDINGS: Single frontal view of the chest demonstrates the cardiomediastinal silhouette to be within normal li mits. Compared to previous examination, there is a decreased inspiratory effort with worsening of grace ateral interstitial and alveolar opacities. Findings are characteristic of a viral type pneumonitis a nd Covid pneumonia. There is also blunting left costophrenic angle representing small left pleural ef fusion with left basilar atelectasis also present. There is no evidence for vascular congestion. Ther e is no acute osseous pathology. IMPRESSION: Decreased inspiration with worsening interstitial and alveolar opacities bilaterally chante acteristic of a viral type pneumonitis and Covid pneumonia. This also small left pleural effusion and left basilar atelectasis. ACT 112: Negative or not required by law. Electronically signed by: Anoop Ashton M.D. 11/01/2021 8:47 AM
[2021-11-01 08:59] LABS: Estimated Average Glucose 128 mg/dl; Hemoglobin A1C 6.1 % (4.5-5.6)
[2021-11-01] MEDS: ASPIRIN 81 MG ECTAB PO SCH (10:09)
[2021-11-01] MEDS: REMDESIVIR 100 MG in SODIUM CHLORIDE 0.9% 230 ML IV SCH (13:12)
[2021-11-01] MEDS: SODIUM CHLORIDE 0.9% 10ML FLUSH IV SCH (14:48)
--- NOTE | 2021-11-01 14:56 | Electrocardiogram Report ---
Test Reason : Blood Pressure : / mmHG Vent. Rate : 074 BPM Atrial Rate : 074 BPM P-R Int : 150 ms QRS Dur : 086 ms QT Int : 404 ms P-R-T Axes : 067 -20 031 degrees QTc Int : 448 ms Normal sinus rhythm Normal ECG When compared with ECG of 30-OCT-2021 08:22, No significant change was found Confirmed by Amandeep Levi ([id number]) on 11/01/2021 2:56:36 PM Referred By: REFERRED SELF Confirmed By:Amandeep Levi
[2021-11-01] MEDS ORDERED: FUROSEMIDE INJ 20 MG/2 ML VIAL IV ONE (15:14)
[2021-11-01] MEDS: ENOXAPARIN INJ 40 MG/0.4 ML SYR SQ SCH (15:39)
--- NOTE | 2021-11-01 16:04 | Hospitalist Progress Note ---
Date of Service November 01, 2021 Assessment & Plan (1) Acute respiratory failure with hypoxia: Plan: Secondary to Covid pneumonia with possible superimposed bacterial pneumonia. Elevated procalcitonin on admission prompted coadministration of antibiotics and antivirals. Continue this along with dexamethasone. Supportive care with antitussives and Mucinex as requested. Prone as tolerated. Continue oxygen supplementation with goal saturation greater than 90%. (2) Pneumonia due to COVID-19 virus: Plan: Mildly elevated D-dimer noted on admission, 730. Patient reports allergy to IV contrast dye and CTA was deferred. D dimer is known to be elevated both in the setting of COVID infection and in a pneumonia. Hypoxia has worsened however still has the pneumonia and pulmonary edema/pleural effusion. This is expected with the worsening of pneumonia is not indicative of a PE necessarily. At this time ultrasounds of the extremities may be considered but are not ideal as the patient is on isolation precautions for Covid in a hospital setting. She is now orthopneic and cannot lie down flat. Studies pending include MRI without contrast and CT studies with contrast of her head and neck vessels. Chest CTA was to be added onto that after she undergoes prophylactic treatment for her contrast allergy. However, at the moment her orthopnea is preventing her from lying flat and completing the studies. I don't see a reason to increase her risk of bleeding with empiric anticoagulation at this time and will instead give her some Lasix and encourage her to prone to try and improve her orthopnea. (3) Hypothyroidism: Plan: chronic, stable, Continue levothyroxine per home regimen. (4) Psoriatic arthritis: Plan: -chronic, stable -Follows with Dr. Moore -Patient reports that Xeljanz was stopped about 2 months ago (5) DVT prophylaxis: Plan: Lovenox Full Code Dispo-to home when medically stable We did discuss the possibility of intubation in her overall mortality if that were to occur. She understands that that may end up in her having a tracheostomy tube or other long-term side effect. She accepts those risks and wishes to remain a full code and undergo all treatment necessary to survive. Sharonda [facility] DO [facility] and Anticipated Discharge Date Admission Date: October 30, 2021 Subjective 61 yo F presents with covid pneumonia Overnight, patient developed numbness in her left upper extremity from her jaw down to her fingertips. She reported numbness in her right hand as well and this has since resolved. She still has left upper extremity numbness today. She was turned onto her side started coughing and became short of breath and panicky last night. A stroke alert was called and a CT of her head was performed revealing no acute intracranial abnormality. After discussion with the on-call neurologist, TPA was considered however the patient declined after hearing the risks and possible side effects. Although an MRI and CTA of the head and neck were ordered, the patient's oxygen requirement has increased because of worsening pneumonia and she is now orthopneic. As a result of her increased oxygen needs she was transferred to PCU where she remains oxygenating 92% on 10 L/min OxiMask. We did discuss the possibility of intubation in her overall mortality if that were to occur. She understands that that may end up in her having a tracheostomy tube or other long-term side effect. She accepts those risks and wishes to remain a full code and undergo all treatment necessary to survive. She also mentions a history of side effects to steroids in general, namely anxiety. She does not take anxiety medication at home and was deterred in doing this here. Decreased steroid dose by 50%. Patient is also requesting to stop the Mucinex as this is making her throat dry. Review of Systems Review of Systems: All systems reviewed and negative except as indicated above. Physical Exam Physical Exam: CONSTITUTIONAL: WNWD, vitals as above, generally well- appearing, NAD EYES: normal conjunctivae, no scleral icterus ENT: external ear and nose normal, MMM NECK: trachea midline RESPIRATORY: clear to auscultation bilaterally, no crackles, rales or wheezes, normal respiratory effort CARDIOVASCULAR: regular rate and rhythm, S1 and 2 heard without murmurs, gallops or rubs, no JVD, no peripheral edema CHEST: inspection of chest was normal GASTROINTESTINAL: soft, nontender, ND, no guarding MUSCULOSKELETAL: strength 5/5 throughout, head is normocephalic and atraumatic SKIN: warm and dry NEUROLOGIC: No facial palsy, no dysarthria. CN 2-12 grossly intact, no sensory deficit, normal cognition, normal speech, no tremor, no gross focal deficit. PSYCHIATRIC: alert cooperative and oriented to person, place and time. Euthymic mood, makes good eye contact, language grossly intact, recent and remote memory grossly intact. Results & Data Results & Data ([facility]) Vital Signs (Past 12 Hours) Vital Signs Temp Pulse Pulse Pulse Resp BP BP 11/01/21 12:23 36.7 C 69 18 123/70 11/01/21 11:00 72 11/01/21 10:58 36.9 C 61 20 135/72 11/01/21 08:03 36.7 C 58 L 20 135/81 11/01/21 06:20 53 L 11/01/21 04:00 36.4 C L 59 L 20 107/68 Pulse Ox 11/01/21 12:23 92 11/01/21 11:00 11/01/21 10:58 88 L 11/01/21 08:03 94 11/01/21 06:20 11/01/21 04:00 95 Laboratory Results Short CBC 10/31/21 11/01/21 Range/Units 21:34 06:03 WBC 5.61 4.36 L (4.8-10.8) K/uL Hgb 13.8 12.7 (12.0-16.0) g/dL Hct 40.6 39.2 (37-47) % Plt Count 194 225 (130-400) K/uL BMP 10/31/21 11/01/21 21:34 06:03 Sodium 142 140 Potassium 4.0 3.7 Chloride 109 H 109 H Carbon Dioxide 26 25 BUN 17 22 H Creatinine 0.65 0.60 Glucose 130 H 109 H Calcium 8.3 L 8.1 L Cardiac Enzymes 10/31/21 Range/Units 20:26 Troponin I < 0.015 (0-0.045) ng/ml Liver Function 10/31/21 11/01/21 Range/Units 21:34 06:03 Total Bilirubin 0.3 (0.2-1) mg/dl AST 45 H 37 (15-37) U/L ALT 43 39 (12-78) Alkaline Phosphatase 55 (45-117) U/L Albumin 2.6 L (3.4-5.0) gm/dl Diagnostic Findings Chest X-Ray 11/01/21 07:32 XR chest 1V portable CLINICAL HISTORY: hypoxia. Follow-up bilateral airspace opacities COMPARISON STUDY: 10/30/2021 TECHNIQUE: 1 view of the chest FINDINGS: Single frontal view of the chest demonstrates the cardiomediastinal silhouette to be within normal limits. Compared to previous examination, there is a decreased inspiratory effort with worsening of bilateral interstitial and alveolar opacities. Findings are characteristic of a viral type pneumonitis and Covid pneumonia. There is also blunting left costophrenic angle representing small left pleural effusion with left basilar atelectasis also present. There is no evidence for vascular congestion. There is no acute osseous pathology. IMPRESSION: Decreased inspiration with worsening interstitial and alveolar opacities bilaterally characteristic of a viral type pneumonitis and Covid pneumonia. This also small left pleural effusion and left basilar atelectasis. ACT 112: Negative or not required by law. Electronically signed by: Anoop Ashton M.D. 11/01/2021 8:47 AM Medications Administered Current Inpatient Medications Acetaminophen (Acetaminophen 325 Mg Tab) 650 mg PO Q4H PRN PRN Reason: pain/fever Stop: 11/29/21 17:27 Last Admin: 11/01/21 08:18 Dose: 650 mg Documented by: Albuterol (Albut/Ipratrop 3mg/0.5mg Neb 3 Ml Vial) 3 ml NEB Q4R PRN PRN Reason: shotnes of beath Stop: 11/29/21 14:39 Aspirin (Aspirin 81 Mg Ectab) 81 mg PO QAM [facility] Stop: 12/01/21 08:59 Last Admin: 11/01/21 10:09 Dose: 81 mg Documented by: Atorvastatin Calcium (Atorvastatin 40 Mg Tab) 40 mg PO QAM [facility] Stop: 12/01/21 08:59 Last Admin: 11/01/21 08:11 Dose: 40 mg Documented by: Benzonatate (Benzonatate 100 Mg Capsule) 100 mg PO TID [facility] Stop: 11/30/21 13:59 Last Admin: 11/01/21 15:39 Dose: 100 mg Documented by: Enoxaparin Sodium (Enoxaparin Inj 40 Mg/0.4 Ml Syr) 40 mg SQ Q24H [facility] Stop: 11/29/21 14:39 Last Admin: 11/01/21 15:39 Dose: 40 mg Documented by: Guaifenesin (Guaifenesin 600 Mg Tabcr) 1,200 mg PO Q12 [facility] Stop: 11/30/21 11:49 Last Admin: 11/01/21 08:20 Dose: Not Given Documented by: Guaifenesin/Codeine Phosphate (Guaifenesin/Codeine 200mg/20mg 10ml Udc) 10 ml PO Q6H PRN PRN Reason: Cough Stop: 11/30/21 11:43 Azithromycin 500 mg/ Dextrose 255 mls @ 125 mls/hr IV DAILY [facility] Stop: 11/06/21 10:59 Last Infusion: 11/01/21 10:28 Dose: Infused Documented by: Ceftriaxone Sodium 2,000 mg/ (Dextrose) 70 mls @ 140 mls/hr IV Q24H [facility]; Protocol Stop: 11/06/21 22:59 Last Infusion: 10/31/21 22:51 Dose: Infused Documented by: Remdesivir 100 mg/ Sodium (Chloride) 250 mls @ 250 mls/hr IV Q24H [facility]; Protocol Stop: 11/03/21 12:59 Last Infusion: 11/01/21 14:45 Dose: Infused Documented by: Dexamethasone 3 mg/ Syringe 0.75 mls @ 1 mls/min IV DAILY [facility] Stop: 11/12/21 08:59 Levothyroxine Sodium (Levothyroxine Sodium 125 Mcg Tablet) 125 mcg PO DAILYBB [facility] Stop: 11/30/21 06:29 Last Admin: 11/01/21 06:13 Dose: 125 mcg Documented by: Miscellaneous Information (Pharmacist Discharge Med Rec Consult) 1 ea N/A UD PRN PRN Reason: Consult Stop: 11/30/21 22:05 Ondansetron HCl (Ondansetron Inj 2 Mg/Ml 2 Ml Vial) 4 mg IV Q6H PRN PRN Reason: Nausea Stop: 11/29/21 14:39 Sodium Chloride (Sodium Chloride 0.9% 10ml Flush) 30 ml IV Q24H [facility] Stop: 11/03/21 13:01 Last Admin: 11/01/21 14:48 Dose: 30 ml Documented by:
--- NOTE | 2021-11-01 18:28 | Consultation Report ---
NEUROLOGY CONSULTATION NOTE DATE OF CONSULTATION: 11/01/2021. CHIEF COMPLAINT: Left arm numbness, COVID pneumonia/hypoxia. HISTORY OF PRESENT ILLNESS: A 61-year-old female admitted on 10/30/2021 for acute respiratory failur e with hypoxia. The patient presented from home for worsening shortness of breath, hypoxia, and naus ea. She tested positive on 10/23/[address] [facility] for COVID-19. The patient was hypoxic in the emergency room with ambulation and oxygen level at 84%. Chest x-ray was consistent with COVID-19 pneumonia. She was started on dexamethasone and remdesivir. Last evening, the patient developed numbness of her left upper extremity from her jaw down to her fingertips. She also noted numbness in her right hand as well. She had some anxiety last night as well as felt panicky when she started coughing and felt short of breath. Stroke alert was called and CT head noncontrast showed no acute intracranial abnorm ality. TPA was deferred as the patient declined. MRI and CTA of the head and neck were ordered, alt floyd the patient's oxygen requirement as well as anxiety prevented further studies. The patient cur rently back to baseline with no numbness. No focal neurological deficits per discussion with nurse. ALLERGIES: MORPHINE, LATEX. PAST MEDICAL HISTORY: Hypothyroidism, psoriasis. HOME MEDICATIONS: Albuterol, Celebrex, Synthroid, Zofran as needed. PAST SURGICAL HISTORY: Arthroscopic knee surgery. FAMILY HISTORY: Father had diabetes and heart disease. SOCIAL HISTORY: Former smoker, lives at home alone. REVIEW OF SYSTEMS: All other review of systems was negative except as noted above in the HPI. PHYSICAL EXAMINATION: VITAL SIGNS: Blood pressure 147/80, pulse is 57, respiratory rate is 20, temperature is 36.5 degrees Celsius, oxygen saturation is 96% on 10 liters. DIAGNOSTIC TESTING: WBC 4.36, hemoglobin 12.7, platelet count 225, sodium 140, potassium 3.7, chlori de 109, carbon dioxide 25, BUN 22, creatinine 0.60, glucose 109. Hemoglobin A1c 6.1. CRP 3.67. Pro calcitonin 0.99. Chest x-ray performed today showed decreased inspiration with worsening interstitia l and alveolar opacities bilaterally, characteristic of viral type pneumonia and COVID pneumonia. Th ere is also a small left pleural effusion and left basilar atelectasis. CT head noncontrast, no acute intracranial abnormality. ASSESSMENT AND PLAN: A 61-year-old woman admitted with acute respiratory failure due to COVID-19 pne umonia. Noted to have intermittent left upper extremity numbness in the setting of shortness of ezra th, hypoxia, and anxiety. Symptoms have since resolved. CT head noncontrast is reassuring. Agree w ith conservative management for now given priority with acute respiratory failure in the setting of p neumonia. Differential diagnosis certainly includes anxiety/functional neurological symptom versus t ransient ischemic attack. Would favor possible anxiety related symptoms. If symptoms persist or rec ur, would recommend repeat CT head noncontrast. Otherwise, agree with monitoring for now. Please co ntact me with any additional questions or concerns. Job ID: [id number]
[2021-11-01] MEDS: LORazepam 0.5 MG TAB PO PRN (21:20)
[2021-11-01] MEDS: cefTRIAXone SODIUM 2,000 MG in DEXTROSE 5% 50 ML IV SCH (22:30)
[2021-11-02] MEDS: LORazepam 0.5 MG TAB PO PRN (05:29)
[2021-11-02] MEDS: LEVOTHYROXINE SODIUM 125 MCG TABLET PO SCH (05:30)
[2021-11-02 07:56] LABS: Hematocrit (blood only) 40.5 % (37-47); Hemoglobin 13.1 g/dL (12.0-16.0); Mean Corpuscular Hemoglobin 30.2 pg (25-34); Mean Corpuscular Hgb Conc 32.3 g/dL (32-36); Mean Corpuscular Volume 93.3 fL (80-100); Mean Platelet Volume 9.2 fL (7.4-10.4); Platelet Count 254 K/uL (130-400); RDW Coefficient of Variation 13.2 % (11.5-14.5); RDW Standard Deviation 45.3 fL (36.4-46.3); Red Blood Count 4.34 M/uL (4.2-5.4)
[2021-11-02] MEDS: BENZONATATE 100 MG CAPSULE PO SCH ×3 (08:28→21:51)
[2021-11-02] MEDS: ASPIRIN 81 MG ECTAB PO SCH (08:29)
[2021-11-02] MEDS: ATORVASTATIN 40 MG TAB PO SCH (08:29)
[2021-11-02] MEDS: dexAMETHasone 3 MG in SYRINGE 0 ML IV SCH (08:31)
[2021-11-02 08:34] LABS: Basophils # (auto) 0.01 K/uL (0-0.2); Basophils % (auto) 0.2 %; Immature Granulocytes # (auto) 0.11 K/uL (0.00-0.02); Lymphocytes # (auto) 0.98 K/uL (1.2-3.4); Lymphocytes % (auto) 18.1 %; Monocytes # (auto) 0.43 K/uL (0.11-0.59); Neutrophils # (auto) 3.87 K/uL (1.4-6.5); Neutrophils % (auto) 71.7 %
[2021-11-02] MEDS: AZITHROMYCIN 500 MG in DEXTROSE 5% 250 ML IV SCH (08:46)
[2021-11-02 08:50] LABS: Est GFR (Non-African American) 94.9 ml/min
[2021-11-02] MEDS ORDERED: FUROSEMIDE 40 MG/4 ML VIAL IV ONE (11:15)
--- NOTE | 2021-11-02 11:17 | Hospitalist Progress Note ---
Date of Service November 02, 2021 Assessment & Plan (1) Acute respiratory failure with hypoxia: Plan: Secondary to Covid pneumonia with possible superimposed bacterial pneumonia. Elevated procalcitonin on admission prompted coadministration of antibiotics and antivirals. Continue dexamethasone and remdesivir Currently on lower dose of dexamethasone per previous provider due to possible adverse effect. Tolerating current dose well Continue supportive care with antitussives Counselled on self proning prone when able. Reports she cant do it now or lay flat. Continue oxygen supplementation with goal saturation greater than 90% and wean as tolerated IS (2) Pneumonia due to COVID-19 virus: Plan: Mildly elevated D-dimer noted on admission, 730. Patient reports allergy to IV contrast dye and CTA was deferred. D dimer is known to be elevated both in the setting of COVID infection and in a pneumonia. Hypoxia has worsened however still has the pneumonia and pulmonary edema/pleural effusion. This is expected with the worsening of pneumonia is not indicative of a PE necessarily. She is still orthopneic and cannot lie down flat for imaging Will continue current treatment Give lasix today (3) Hypothyroidism: Plan: chronic, stable, Continue levothyroxine per home regimen. (4) Psoriatic arthritis: Plan: -chronic, stable -Follows with Dr. Moore -Patient reports that Xeljanz was stopped about 2 months ago (5) DVT prophylaxis: Plan: Lovenox Full Code Dispo-to home when medically stable LUE numbness reported the other day. Currently resolved Could be related to anxiety. TIA is also a possibility. Neurologist recommendation noted. Continue conservative management for now. Further imaging cannot be obtained right now due to patient's orthopnea. Admission and Anticipated Discharge Date Admission Date: October 30, 2021 Subjective 61-year-old woman being managed for acute hypoxic respiratory failure due to COVID-19 pneumonia. Patient seen and examined this morning. Reports feeling better this morning. Currently on Oxymizer at 10 L/min and saturating 91 to 92% Reports feeling better today. Still has cough, shortness of breath. Reports left upper extremity numbness is resolved. Stated that she occasionally gets numbness if she lays in certain positions especially with the arm hanging or compressed. Denies any chest pain, palpitations Denies nausea, vomiting, abdominal pain or diarrhea Denies fevers, chills Denies dysuria, frequency, urgency Physical Exam Constitutional: + well hydrated and + obese; no acute distress Eyes: PERRL, conjunctivae normal, anicteric sclerae ENMT: external ear and nose normal, oropharynx normal Respiratory: Oxygen mask, diminished breath sounds Cardiovascular: RRR, S1-S2 Gastrointestinal (Abdomen): normal bowel sounds, soft, nontender, no hepatosplenomegaly Musculoskeletal: no cyanosis or clubbing, extremities motor strength 5/5 Pedal edema Neurologic: PERRL, EOMI, accommodation nl, no face palsy, no dysarthria No sensory deficit noted on exam Psychiatric: A+Ox3, euthymic affect Results & Data Results & Data ([facility]) Vital Signs (Past 12 Hours) Vital Signs Temp Pulse Resp BP Pulse Ox 11/02/21 10:49 16 91 11/02/21 08:10 37.1 C 55 L 24 126/65 96 11/02/21 04:47 37.1 C 58 L 18 110/72 96 11/02/21 00:26 36.7 C 71 20 128/68 98 Laboratory Results Abnormal lab results 11/02/21 Range/Units 07:19 Lymph # (Auto) 0.98 L (1.2-3.4) K/uL Immature Gran # (Auto) 0.11 H (0.00-0.02) K/uL
[2021-11-02] MEDS: REMDESIVIR 100 MG in SODIUM CHLORIDE 0.9% 230 ML IV SCH (12:02)
[2021-11-02] MEDS: SODIUM CHLORIDE 0.9% 10ML FLUSH IV SCH (12:03)
[2021-11-02] MEDS: ENOXAPARIN INJ 40 MG/0.4 ML SYR SQ SCH (13:37)
[2021-11-02] MEDS: cefTRIAXone SODIUM 2,000 MG in DEXTROSE 5% 50 ML IV SCH (21:51)
[2021-11-03] MEDS: LEVOTHYROXINE SODIUM 125 MCG TABLET PO SCH (06:04)
[2021-11-03 08:07] LABS: Basophils # (auto) 0.02 K/uL (0-0.2); Basophils % (auto) 0.3 %; Hematocrit (blood only) 39.7 % (37-47); Hemoglobin 13.1 g/dL (12.0-16.0); Immature Granulocytes # (auto) 0.29 K/uL (0.00-0.02); Immature Granulocytes % (auto) 4.5 %; Lymphocytes # (auto) 1.36 K/uL (1.2-3.4); Lymphocytes % (auto) 21.2 %; Mean Corpuscular Hemoglobin 30.3 pg (25-34); Mean Corpuscular Volume 91.9 fL (80-100); Mean Platelet Volume 9.3 fL (7.4-10.4); Monocytes # (auto) 0.53 K/uL (0.11-0.59); Monocytes % (auto) 8.3 %; Neutrophils # (auto) 4.22 K/uL (1.4-6.5); Neutrophils % (auto) 65.7 %; Platelet Count 259 K/uL (130-400); RDW Standard Deviation 43.5 fL (36.4-46.3); Red Blood Count 4.32 M/uL (4.2-5.4); White Blood Count 6.42 K/uL (4.8-10.8)
[2021-11-03 08:42] LABS: BUN Creatinine Ratio 36.1 (10-20); C Reactive Protein 1.08 mg/dl (0-0.29); Calcium 8.5 mg/dl (8.5-10.1); Creatinine Clr Calc Pharmacy 106.1 ml/min; Est GFR (African American) 113.4 ml/min; Est GFR (Non-African American) 97.8 ml/min; Potassium 3.5 mmol/L (3.5-5.1)
[2021-11-03] MEDS: ATORVASTATIN 40 MG TAB PO SCH (08:58)
[2021-11-03] MEDS: BENZONATATE 100 MG CAPSULE PO SCH ×3 (08:58→20:20)
[2021-11-03] MEDS: dexAMETHasone 3 MG in SYRINGE 0 ML IV SCH (08:58)
[2021-11-03] MEDS: AZITHROMYCIN 500 MG in DEXTROSE 5% 250 ML IV SCH (08:58)
[2021-11-03] MEDS: ASPIRIN 81 MG ECTAB PO SCH (08:58)
[2021-11-03] MEDS: REMDESIVIR 100 MG in SODIUM CHLORIDE 0.9% 230 ML IV SCH (13:19)
[2021-11-03] MEDS: SODIUM CHLORIDE 0.9% 10ML FLUSH IV SCH (13:20)
[2021-11-03] MEDS: ENOXAPARIN INJ 40 MG/0.4 ML SYR SQ SCH (13:20)
--- NOTE | 2021-11-03 14:16 | Hospitalist Progress Note ---
Date of Service November 03, 2021 Assessment & Plan (1) Acute respiratory failure with hypoxia: Plan: Secondary to Covid pneumonia with possible superimposed bacterial pneumonia. Elevated procalcitonin on admission prompted coadministration of antibiotics and antivirals. Continue dexamethasone and remdesivir Currently on lower dose of dexamethasone per previous provider due to possible adverse effect. Tolerating current dose well Continue supportive care with antitussives Continue as tolerated IS (2) Pneumonia due to COVID-19 virus: Plan: Mildly elevated D-dimer noted on admission, 730. Patient reports allergy to IV contrast dye and CTA was deferred. D dimer is known to be elevated both in the setting of COVID infection and in a pneumonia. Oxygen requirement improving Pt feels better today CRP trending down continue treatment as above Give lasix IV (3) Hypothyroidism: Plan: chronic, stable, Continue levothyroxine per home regimen. (4) Psoriatic arthritis: Plan: -chronic, stable -Follows with Dr. Moore -Patient reports that Xeljanz was stopped about 2 months ago (5) DVT prophylaxis: Plan: Lovenox Full Code Dispo-to home when medically stable LUE numbness reported the other day. Currently resolved Could be related to anxiety. TIA is also a possibility. Neurologist recommendation noted. Continue conservative management for now. Admission and Anticipated Discharge Date Admission Date: October 30, 2021 Subjective 61-year-old woman being managed for acute hypoxic respiratory failure due to COVID-19 pneumonia. Patient seen and examined Reports feeling better today. Improving oxygen requirement, down to 8l/min Still has cough, shortness of breath. Left upper extremity numbness is resolved. Denies any chest pain, palpitations Denies nausea, vomiting, abdominal pain or diarrhea Denies fevers, chills Denies dysuria, frequency, urgency Physical Exam Constitutional: + well hydrated and + obese; no acute distress Eyes: PERRL, conjunctivae normal, anicteric sclerae ENMT: external ear and nose normal, oropharynx normal Respiratory: on Oxymask at 8l/min Mild scattered crackles Cardiovascular: RRR S1 S2 Gastrointestinal (Abdomen): normal bowel sounds, soft, nontender, no hepatosplenomegaly Musculoskeletal: no cyanosis or clubbing, extremities motor strength 5/5 Neurologic: PERRL, EOMI, accommodation nl, no face palsy, no dysarthria Psychiatric: A+Ox3, euthymic affect Results & Data Results & Data ([facility]) Vital Signs (Past 12 Hours) Vital Signs Temp Pulse Pulse Resp BP BP Pulse Ox 11/03/21 12:23 95 11/03/21 12:22 36.5 C 86 18 105/77 90 11/03/21 08:04 36.7 C 56 L 20 119/64 90 11/03/21 07:42 66 11/03/21 03:49 36.7 C 54 L 18 105/55 L 89 L Laboratory Results Abnormal lab results 11/03/21 11/03/21 Range/Units 07:12 07:12 Immature Gran # (Auto) 0.29 H (0.00-0.02) K/uL BUN 22 H (7-18) mg/dl BUN/Creatinine Ratio 36.1 H (10-20) AST 42 H (15-37) U/L C-Reactive Protein 1.08 H (0-0.29) mg/dl
[2021-11-03] MEDS ORDERED: FUROSEMIDE 40 MG/4 ML VIAL IV ONE (14:30)
[2021-11-03] MEDS: cefTRIAXone SODIUM 2,000 MG in DEXTROSE 5% 50 ML IV SCH (22:28)
[2021-11-04] MEDS: LEVOTHYROXINE SODIUM 125 MCG TABLET PO SCH (05:52)
[2021-11-04 07:18] LABS: Hematocrit (blood only) 41.7 % (37-47); Hemoglobin 13.8 g/dL (12.0-16.0); Mean Corpuscular Hemoglobin 30.5 pg (25-34); Mean Corpuscular Hgb Conc 33.1 g/dL (32-36); Mean Corpuscular Volume 92.1 fL (80-100); Mean Platelet Volume 9.4 fL (7.4-10.4); Platelet Count 336 K/uL (130-400); RDW Standard Deviation 43.4 fL (36.4-46.3); Red Blood Count 4.53 M/uL (4.2-5.4); White Blood Count 6.34 K/uL (4.8-10.8)
[2021-11-04 07:40] LABS: BUN Creatinine Ratio 29.8 (10-20); Creatinine Clr Calc Pharmacy 87.5 ml/min; Est GFR (Non-African American) 88.9 ml/min; Potassium 3.6 mmol/L (3.5-5.1)
[2021-11-04] MEDS: BENZONATATE 100 MG CAPSULE PO SCH ×3 (08:26→20:15)
[2021-11-04] MEDS: dexAMETHasone 3 MG in SYRINGE 0 ML IV SCH (08:26)
[2021-11-04] MEDS: ATORVASTATIN 40 MG TAB PO SCH (08:26)
[2021-11-04] MEDS: ASPIRIN 81 MG ECTAB PO SCH (08:26)
[2021-11-04] MEDS: AZITHROMYCIN 500 MG in DEXTROSE 5% 250 ML IV SCH (08:26)
[2021-11-04] MEDS: ENOXAPARIN INJ 40 MG/0.4 ML SYR SQ SCH (13:39)
--- NOTE | 2021-11-04 17:14 | Hospitalist Progress Note ---
Date of Service November 04, 2021 Assessment & Plan (1) Acute respiratory failure with hypoxia: Plan: Secondary to Covid pneumonia with possible superimposed bacterial pneumonia. Elevated procalcitonin on admission prompted coadministration of antibiotics and antivirals. Continue oxygen supplementation and supportive care efforts Dexamethasone discontinued secondary to reaction and side effects per patient (anxiousness) Remdesivir course complete. Overall improved. (2) Pneumonia due to COVID-19 virus: Plan: Mildly elevated D-dimer noted on admission, 730. Patient reports allergy to IV contrast dye and CTA was deferred. D dimer is known to be elevated both in the setting of COVID infection and in a pneumonia. Oxygen requirement improving Pt feels better today CRP trending down continue treatment as above She received daily doses of Lasix IV for the past 3 days, however, she is euvolemic to dry at this point and reporting a headache in response to Lasix. No further Lasix being given at this time. (3) TIA (transient ischemic attack): Plan: episode of anxiety cause transient LUE numbness versus possible TIA. Work-up was negative and symptoms have resolved at this point. Continue aspirin and Lipitor. I discussed these medications with the patient this evening and explained why follow-up was important. She verbalized understanding with intent to comply (4) Hypothyroidism: Plan: chronic, stable, Continue levothyroxine per home regimen. (5) Psoriatic arthritis: Plan: -chronic, stable -Follows with Dr. Moore -Patient reports that Xeljanz was stopped about 2 months ago secondary to side effects. (6) DVT prophylaxis: Plan: Lovenox Full Code Dispo-to home when medically stable Admission and Anticipated Discharge Date Admission Date: October 30, 2021 Subjective 61-year-old woman being managed for acute hypoxic respiratory failure due to COVID-19 pneumonia. Feels better today after her episode that felt like a reaction to steroids. She is requesting steroids to be held from her med list. Oxygen needs are improving and CRP is improving. Reports some cough but this is also improving. She is ambulating around her room going to the bathroom independently. Tolerating p.o. Afebrile Review of Systems Review of Systems: All systems reviewed and negative except as indicated above. Physical Exam Physical Exam: CONSTITUTIONAL: WNWD, vitals as above, generally well- appearing, NAD EYES: normal conjunctivae, no scleral icterus ENT: external ear and nose normal, MMM NECK: trachea midline RESPIRATORY: clear to auscultation bilaterally, no crackles, rales or wheezes, normal respiratory effort CARDIOVASCULAR: regular rate and rhythm, S1 and 2 heard without murmurs, gallops or rubs, no JVD, no peripheral edema CHEST: inspection of chest was normal GASTROINTESTINAL: soft, nontender, ND, no guarding MUSCULOSKELETAL: strength 5/5 throughout, head is normocephalic and atraumatic SKIN: warm and dry NEUROLOGIC: No facial palsy, no dysarthria. CN 2-12 grossly intact, no sensory deficit, normal cognition, normal speech, no tremor, no gross focal deficit. PSYCHIATRIC: alert cooperative and oriented to person, place and time. Euthymic mood, makes good eye contact, language grossly intact, recent and remote memory grossly intact. Results & Data Results & Data ([facility]) Vital Signs (Past 12 Hours) Vital Signs Temp Pulse Pulse Resp BP BP Pulse Ox 11/04/21 16:45 54 L 11/04/21 15:15 36.8 C 63 19 115/76 92 11/04/21 11:44 36.8 C 71 18 98/62 L 96 11/04/21 10:25 16 118/82 95 11/04/21 07:42 36.7 C 62 19 109/59 L 90 11/04/21 07:18 52 L Laboratory Results Short CBC 11/04/21 Range/Units 05:53 WBC 6.34 (4.8-10.8) K/uL Hgb 13.8 (12.0-16.0) g/dL Hct 41.7 (37-47) % Plt Count 336 (130-400) K/uL BMP 11/04/21 05:53 Sodium 139 Potassium 3.6 Chloride 103 Carbon Dioxide 27 BUN 22 H Creatinine 0.73 Glucose 102 H Calcium 9.0 Liver Function 11/04/21 Range/Units 05:53 AST 30 (15-37) U/L ALT 50 (12-78) Medications Administered Current Inpatient Medications Acetaminophen (Acetaminophen 325 Mg Tab) 650 mg PO Q4H PRN PRN Reason: pain/fever Stop: 11/29/21 17:27 Last Admin: 11/01/21 08:18 Dose: 650 mg Documented by: Albuterol (Albut/Ipratrop 3mg/0.5mg Neb 3 Ml Vial) 3 ml NEB Q4R PRN PRN Reason: shotnes of beatzaynab Stop: 11/29/21 14:39 Aspirin (Aspirin 81 Mg Ectab) 81 mg PO QAM [facility] Stop: 12/01/21 08:59 Last Admin: 11/04/21 08:26 Dose: 81 mg Documented by: Atorvastatin Calcium (Atorvastatin 40 Mg Tab) 40 mg PO QAM [facility] Stop: 12/01/21 08:59 Last Admin: 11/04/21 08:26 Dose: 40 mg Documented by: Benzonatate (Benzonatate 100 Mg Capsule) 100 mg PO TID [facility] Stop: 11/30/21 13:59 Last Admin: 11/04/21 13:01 Dose: Not Given Documented by: Enoxaparin Sodium (Enoxaparin Inj 40 Mg/0.4 Ml Syr) 40 mg SQ Q24H [facility] Stop: 11/29/21 14:39 Last Admin: 11/04/21 13:39 Dose: 40 mg Documented by: Guaifenesin/Codeine Phosphate (Guaifenesin/Codeine 200mg/20mg 10ml Udc) 10 ml PO Q6H PRN PRN Reason: Cough Stop: 11/30/21 11:43 Azithromycin 500 mg/ Dextrose 255 mls @ 125 mls/hr IV DAILY [facility] Stop: 11/06/21 10:59 Last Infusion: 11/04/21 10:29 Dose: Infused Documented by: Ceftriaxone Sodium 2,000 mg/ (Dextrose) 70 mls @ 140 mls/hr IV Q24H [facility]; Protocol Stop: 11/06/21 22:59 Last Infusion: 11/03/21 23:00 Dose: Infused Documented by: Dexamethasone 3 mg/ Syringe 0.75 mls @ 1 mls/min IV DAILY [facility] Stop: 11/12/21 08:59 Last Admin: 11/04/21 08:26 Dose: 1 mls/min Documented by: Levothyroxine Sodium (Levothyroxine Sodium 125 Mcg Tablet) 125 mcg PO DAILYBB [facility] Stop: 11/30/21 06:29 Last Admin: 11/04/21 05:52 Dose: 125 mcg Documented by: Lorazepam (Lorazepam 0.5 Mg Tab) 0.5 mg PO BID PRN PRN Reason: Anxiety Stop: 12/01/21 20:39 Last Admin: 11/02/21 05:29 Dose: 0.5 mg Documented by: Ondansetron HCl (Ondansetron Inj 2 Mg/Ml 2 Ml Vial) 4 mg IV Q6H PRN PRN Reason: Nausea Stop: 11/29/21 14:39
[2021-11-04 21:36] LABS: B2 Glycoprotein IgA 2.3 U/mL (<20.0); B2 Glycoprotein IgG <2.0 U/mL (<20.0); Phosphatidylserine IgG <10 U/mL (<10); Phosphatidylserine IgM 27 U/mL (<25)
[2021-11-04] MEDS: cefTRIAXone SODIUM 2,000 MG in DEXTROSE 5% 50 ML IV SCH (22:51)
[2021-11-05] MEDS: LEVOTHYROXINE SODIUM 125 MCG TABLET PO SCH (06:23)
[2021-11-05 06:56] LABS: Hematocrit (blood only) 38.3 % (37-47); Hemoglobin 12.6 g/dL (12.0-16.0); Mean Corpuscular Hemoglobin 30.3 pg (25-34); Mean Corpuscular Hgb Conc 32.9 g/dL (32-36); Mean Corpuscular Volume 92.1 fL (80-100); Mean Platelet Volume 9.4 fL (7.4-10.4); Platelet Count 300 K/uL (130-400); RDW Standard Deviation 43.7 fL (36.4-46.3); Red Blood Count 4.16 M/uL (4.2-5.4)
[2021-11-05 07:37] LABS: BUN Creatinine Ratio 28.9 (10-20); Calcium 8.7 mg/dl (8.5-10.1); Creatinine Clr Calc Pharmacy 117.4 ml/min; Est GFR (African American) 117.3 ml/min; Est GFR (Non-African American) 101.2 ml/min; Potassium 3.7 mmol/L (3.5-5.1)
[2021-11-05 07:40] LABS: C Reactive Protein 0.6 mg/dl (0-0.29)
[2021-11-05] MEDS ORDERED: BENZONATATE 100 MG CAPSULE PO PRN (08:17)
[2021-11-05] MEDS: ASPIRIN 81 MG ECTAB PO SCH (09:05)
[2021-11-05] MEDS: ATORVASTATIN 40 MG TAB PO SCH (09:05)
--- NOTE | 2021-11-05 11:47 | Hospitalist Progress Note ---
Date of Service November 05, 2021 Assessment & Plan (1) Acute respiratory failure with hypoxia: Plan: Secondary to Covid pneumonia with possible superimposed bacterial pneumonia. Elevated procalcitonin on admission prompted coadministration of antibiotics and antivirals. Continue oxygen supplementation and supportive care efforts Dexamethasone discontinued secondary to reaction and side effects per patient (anxiousness) Remdesivir course complete. Overall improved. Antibiotics stopped now that procalcitonin is negative and she is improved. (2) Pneumonia due to COVID-19 virus: Plan: Mildly elevated D-dimer noted on admission, 730. Patient reports allergy to IV contrast dye and CTA was deferred. D dimer is known to be elevated both in the setting of COVID infection and in a pneumonia. Oxygen requirement improving Pt feels better today CRP trending down continue treatment as above She received daily doses of Lasix IV for 3 days, however, she is euvolemic to dry at this point and reporting a headache in response to Lasix. No further Lasix being given at this time. (3) TIA (transient ischemic attack): Plan: episode of anxiety cause transient LUE numbness versus possible TIA. Work-up was negative and symptoms have resolved at this point. Continue aspirin and Lipitor. (4) Hypothyroidism: Plan: chronic, stable, Continue levothyroxine per home regimen. (5) Psoriatic arthritis: Plan: -chronic, stable -Follows with Dr. Moore -Patient reports that Xeljanz was stopped about 2 months ago secondary to side effects. (6) DVT prophylaxis: Plan: Lovenox Full Code Dispo-to home when medically stable [facility]onda Tam [facility] Ad[facility] and Anticipated Discharge Date Admission Date: October 30, 2021 Subjective 61-year-old woman being managed for acute hypoxic respiratory failure due to COVID-19 pneumonia. Feels better today overall Upset because her sister is requiring intubation for covid at another hospital. She is ambulating around her room going to the bathroom independently. Tolerating p.o. Afebrile Review of Systems Review of Systems: All systems reviewed and negative except as indicated above. Physical Exam Physical Exam: CONSTITUTIONAL: WNWD, vitals as above, generally well- appearing, NAD EYES: normal conjunctivae, no scleral icterus ENT: external ear and nose normal, MMM NECK: trachea midline RESPIRATORY: clear to auscultation bilaterally, no crackles, rales or wheezes, normal respiratory effort CARDIOVASCULAR: regular rate and rhythm, S1 and 2 heard without murmurs, gallops or rubs, no JVD, no peripheral edema CHEST: inspection of chest was normal GASTROINTESTINAL: soft, nontender, ND, no guarding MUSCULOSKELETAL: strength 5/5 throughout, head is normocephalic and atraumatic SKIN: warm and dry NEUROLOGIC: No facial palsy, no dysarthria. CN 2-12 grossly intact, no sensory deficit, normal cognition, normal speech, no tremor, no gross focal deficit. PSYCHIATRIC: alert cooperative and oriented to person, place and time. Euthymic mood, makes good eye contact, language grossly intact, recent and remote memory grossly intact. Results & Data Results & Data ([facility]) Vital Signs (Past 12 Hours) Vital Signs Temp Pulse Pulse Resp BP Pulse Ox 11/05/21 11:19 36.8 C 67 20 99/65 L 95 11/05/21 07:21 36.8 C 60 19 121/64 93 11/05/21 04:05 36.7 C 65 17 126/64 91 Laboratory Results Short CBC 11/05/21 Range/Units 06:13 WBC 7.30 (4.8-10.8) K/uL Hgb 12.6 (12.0-16.0) g/dL Hct 38.3 (37-47) % Plt Count 300 (130-400) K/uL BMP 11/05/21 06:13 Sodium 138 Potassium 3.7 Chloride 104 Carbon Dioxide 27 BUN 16 Creatinine 0.55 L Glucose 92 Calcium 8.7 Medications Administered Current Inpatient Medications Acetaminophen (Acetaminophen 325 Mg Tab) 650 mg PO Q4H PRN PRN Reason: pain/fever Stop: 11/29/21 17:27 Last Admin: 11/01/21 08:18 Dose: 650 mg Documented by: Albuterol (Albut/Ipratrop 3mg/0.5mg Neb 3 Ml Vial) 3 ml NEB Q4R PRN PRN Reason: shotnes of beath Stop: 11/29/21 14:39 Aspirin (Aspirin 81 Mg Ectab) 81 mg PO [facility] Stop: 12/01/21 08:59 Last Admin: 11/05/21 09:05 Dose: 81 mg Documented by: Atorvastatin Calcium (Atorvastatin 40 Mg Tab) 40 mg PO [facility] Stop: 12/01/21 08:59 Last Admin: 11/05/21 09:05 Dose: 40 mg Documented by: Benzonatate (Benzonatate 100 Mg Capsule) 100 mg PO TID PRN PRN Reason: cough Stop: 11/30/21 13:59 Enoxaparin Sodium (Enoxaparin Inj 40 Mg/0.4 Ml Syr) 40 mg SQ Q24H [facility] Stop: 11/29/21 14:39 Last Admin: 11/04/21 13:39 Dose: 40 mg Documented by: Guaifenesin/Codeine Phosphate (Guaifenesin/Codeine 200mg/20mg 10ml Udc) 10 ml PO Q6H PRN PRN Reason: Cough Stop: 11/30/21 11:43 Levothyroxine Sodium (Levothyroxine Sodium 125 Mcg Tablet) 125 mcg PO DAILYBB [facility]CLUD[facility] Stop: 11/30/21 06:29 Last Admin: 11/05/21 06:23 Dose: 125 mcg Documented by: Lorazepam (Lorazepam 0.5 Mg Tab) 0.5 mg PO BID PRN PRN Reason: Anxiety Stop: 12/01/21 20:39 Last Admin: 11/02/21 05:29 Dose: 0.5 mg Documented by: Ondansetron HCl (Ondansetron Inj 2 Mg/Ml 2 Ml Vial) 4 mg IV Q6H PRN PRN Reason: Nausea Stop: 11/29/21 14:39
[2021-11-05] MEDS: ENOXAPARIN INJ 40 MG/0.4 ML SYR SQ SCH (16:07)
[2021-11-06] MEDS: LEVOTHYROXINE SODIUM 125 MCG TABLET PO SCH (06:16)
[2021-11-06] MEDS: ATORVASTATIN 40 MG TAB PO SCH (08:18)
[2021-11-06] MEDS: ASPIRIN 81 MG ECTAB PO SCH (08:18)
[2021-11-06] MEDS: ACETAMINOPHEN 325 MG TAB PO PRN (11:28)
[2021-11-06] MEDS: ENOXAPARIN INJ 40 MG/0.4 ML SYR SQ SCH ×2 (14:39→14:43)
[2021-11-06] MEDS ORDERED: ENOXAPARIN INJ 40 MG/0.4 ML SYR SQ ONE (15:30)
--- NOTE | 2021-11-06 19:02 | Hospitalist Progress Note ---
Date of Service November 06, 2021 Assessment & Plan (1) Acute respiratory failure with hypoxia: (2) Pneumonia due to COVID-19 virus: Plan: (1) Acute respiratory failure with hypoxia: � � �� Secondary to Covid pneumonia with possible superimposed bacterial pneumonia.� Elevated procalcitonin on admission prompted coadministration of antibiotics and antivirals.� Continue oxygen supplementation and supportive care efforts Dexamethasone discontinued secondary to reaction and side effects per patient (anxiousness) Remdesivir course complete. Overall improved. Currently on 5L. Antibiotics stopped now that procalcitonin is negative and she is improved. (2) Pneumonia due to COVID-19 virus: � Not vaccinated, has signs and symptoms since October 22. � �� Mildly elevated D-dimer noted on admission, 730.� Patient reports allergy to IV contrast dye and CTA was deferred.� D dimer is known to be elevated both in the setting of COVID infection and in a pneumonia.� Oxygen requirement improving, down to 5L TODAY. Pt feels better today CRP trending down continue treatment as above She received daily doses of Lasix IV for 3 days, however, she is euvolemic to dry at this point and reporting a headache in response to Lasix.� No further Lasix being given at this time. (3) TIA (transient ischemic attack): � � �� episode of anxiety cause transient LUE numbness versus possible TIA.� Work-up was negative and symptoms have resolved at this point.� Continue aspirin and Lipitor.� (4) Hypothyroidism: � � chronic, stable, Continue levothyroxine per home regimen. (5) Psoriatic arthritis: � � � -chronic, stable -Follows with Dr. Moore -Patient reports that Xeljanz was stopped about 2 months ago secondary to side effects. (6) DVT prophylaxis: � � Lovenox Full Code Dispo-to home when medically stable, expect in 1-2 days. Admission and Anticipated Discharge Date Admission Date: October 30, 2021 Subjective Patient was lying in bed, on 5 L oxygen by oxygen mask, NAD, no new acute events overnight. Patient reports eating and moving bowels okay. Patient reports cough with clear sputum which is getting better. Patient denies fever/headache/chills/chest pain/palpitation/increased shortness of breath/other review of symptoms. Physical Exam Physical Exam: GENERAL: Alert and oriented x3. NAD, on 5L via Oxymask HEENT: No pallor, no icterus. Pupils equal, round and reactive to light. Oral mucosa moist. NECK: No JVD, no neck masses. HEART: S1 and S2 heard. Regular rate and rhythm. No murmur, no gallop. RESPIRATORY SYSTEM: Normal AP diameter. No accessory muscle use. No wheezing, no crackles. Decreased breath sounds. ABDOMEN: Soft, bowel sounds present, nontender, no distention. CENTRAL NERVOUS SYSTEM: No facial droop. Speech is clear. Obeys simple commands. Moves extremities. EXTREMITIES: No edema, no erythema seen. Results & Data Results & Data ([facility]) Vital Signs (Past 12 Hours) Vital Signs Temp Pulse Pulse Resp BP BP Pulse Ox 11/06/21 15:52 71 11/06/21 15:38 36.6 C 79 18 99/70 L 91 11/06/21 11:17 36.8 C 65 20 89/60 L 91/63 L 95 11/06/21 10:11 61 11/06/21 07:22 36.8 C 78 19 105/66 89 L
[2021-11-07] MEDS: LEVOTHYROXINE SODIUM 125 MCG TABLET PO SCH (06:35)
[2021-11-07] MEDS: ASPIRIN 81 MG ECTAB PO SCH (08:46)
[2021-11-07] MEDS: ATORVASTATIN 40 MG TAB PO SCH (08:46)
[2021-11-07] MEDS: ENOXAPARIN INJ 40 MG/0.4 ML SYR SQ SCH (15:29)
--- NOTE | 2021-11-07 19:12 | Discharge Summary ---
Date of Service November 07, 2021 Admission HPI Per Admitting Provider 61-year-old female with PMH hypothyroidism, psoriatic arthritis, and other problems to below who presents the ED for evaluation of shortness of breath. Patient has a positive for COVID-19 on 10/23 at [facility] per her report. Patient reports being sick a few days prior to that. Symptoms initially were generalized weakness, poor appetite, nausea. Patient seen in the ED on 10/25 and had an unremarkable work-up and was discharged home with pulse oximeter. She did not receive COVID-19 directed therapies during that ED visit. Patient reports that today her oxygen levels were dropping down into the 80s and she has severe s hortness of breath with exertion. She continues to have a very poor appetite with nausea and dry heaves. Reports a dry nonproductive cough. No chest pain. Denies lightheadedness, dizziness, diaphoresis, syncopal events. No abdominal pain. Denies fevers and chills. No urinary symptoms. In the ED, patient was hypoxic on room air with ambulation 84%, currently saturating well on 2 L of oxygen via nasal cannula. CXR shows Interval development of moderate bilateral airspace opacities consistent with viral pneumonia. Patient was given Tylenol, IV dexamethasone 6 mg, IV Zofran, IVF. Admission Exam Per Admitting Provider Vitals signs as noted above General Appearance:Obese, no apparent distress Head:� normocephalic, Atraumatic Eyes:� normal inspection, EOMI Neck:� supple, Trachea midline Respiratory/Chest: Decreased breath sounds, basal crackles, No accessory muscle use Cardiovascular: S1, S2, No murmur Abdomen/GI:Soft, Non tender, Bowel sounds present Extremities/Musculoskeletal:normal inspection, no edema Neurologic/Psych:AAOX3, grossly no focal neurological deficits Skin:� normal color, warm Principal Diagnosis Acute respiratory failure with hypoxia secondary to Covid pneumonia Discharge Exam GENERAL: Alert and oriented x3. NAD, on 2L via Oxymask HEENT: No pallor, no icterus. Pupils equal, round and reactive to light. Oral mucosa moist. NECK: No JVD, no neck masses. HEART: S1 and S2 heard. Regular rate and rhythm. No murmur, no gallop. RESPIRATORY SYSTEM: Normal AP diameter. No accessory muscle use. No wheezing, no crackles. Decreased breath sounds. ABDOMEN: Soft, bowel sounds present, nontender, no distention. CENTRAL NERVOUS SYSTEM: No facial droop. Speech is clear. Obeys simple commands. Moves extremities. EXTREMITIES: No edema, no erythema seen. Discharge Data Allergies Allergy/AdvReac Type Severity Reaction Status Date / Time morphine Allergy Mild ITCHING Verified 09/01/16 21:42 latex Allergy Unknown RASH Verified 09/01/16 21:42 dexamethasone AdvReac Severe panicked, Verified 11/04/21 18:50 anxious contrast dye Allergy Unknown Uncoded 11/01/21 16:05 Consultations 10/30/21 09:35 ED Decision to Admit Stat 10/31/21 22:07 Consult Neurology Routine Ordered Studies 10/31/21 21:07 CT head/brain wo con Stat Hospital Course (1) Acute respiratory failure with hypoxia: (2) Pneumonia due to COVID-19 virus: 61-year-old female with PMH hypothyroidism, psoriatic arthritis, and other problems to below who presents 10/30 to the ED for evaluation of shortness of breath. Patient has a positive for COVID-19 on 10/23 at [facility] per her report. Patient reports being sick a few days prior to that. Symptoms initially were generalized weakness, poor appetite, nausea. She was managed for the following: (1) Acute respiratory failure with hypoxia: � � �� Secondary to Covid pneumonia with possible superimposed bacterial pneumonia.� Elevated procalcitonin on admission prompted coadministration of antibiotics and antivirals.� Supplemental oxygen, incentive spirometer, flutter valve. Dexamethasone discontinued secondary to reaction and side effects per patient (anxiousness) Remdesivir course complete. Overall improved. On 2 L at bedside exam on the day of discharge. Two-step ordered. Antibiotics stopped now that procalcitonin is negative and she is improved. (2) Pneumonia due to COVID-19 virus: � Not vaccinated, has signs and symptoms since October 22. � �� Mildly elevated D-dimer noted on admission, 730.� Patient reports allergy to IV contrast dye and CTA was deferred.� D dimer is known to be elevated both in the setting of COVID infection and in a pneumonia.� Oxygen requirement improving, down to 2 L today. Pt feels better today CRP trending down continue treatment as above (3) TIA (transient ischemic attack): � � �� episode of anxiety cause transient LUE numbness versus possible TIA.� Work-up was negative and symptoms have resolved at this point.� Continue aspirin and Lipitor.� (4) Hypothyroidism: � � chronic, stable, Continue levothyroxine per home regimen. (5) Psoriatic arthritis: � � � -chronic, stable -Follows with Dr. Moore -Patient reports that Xeljanz was stopped about 2 months ago secondary to side effects. (6) DVT prophylaxis: � � Lovenox Full Code Patient declined any home health set up or SNF placement. She is being discharged home with following instruction at the point of discharge: Follow-up with your primary care physician within a week time. Take medications as prescribed. Your diagnosed Covid positive on 10/30, maintain self-isolation at home for 20 days from diagnosis. Home Isolation COVID-19 Instructions Total Time Total Time Spent Total Time Spent (In Minutes): 40 Discharge Plan Discharge Items Patient Disposition: Home - Self-Care Reason For Visit: COVID PNEUMONIA Discharge Diagnosis: Acute respiratory failure with hypoxia secondary to Covid pneumonia Activity: Resume your previous activity Non-emergency contact: Primary Care Provider Call non-emergency contact if: you have any medication questions, your symptoms worsen and your temperature is above 101 Follow-up/Referrals: Sandy Laboy MD [Primary Care Provider] - (Date & Time 11/11/2021 �5:00 PM Provider Rylan Ray PA-C Department General Internal Medicine [facility] PLEASE NOTE THAT THIS IS A TELEHEALTH VIDEO APPOINTMENT. PLEASE FOLLOW THE INSTRUCTIONS THAT ARE SENT IN AN EMAIL. IF YOU HAVE ANY QUESTIONS REGARDING THIS APPOINTMENT, PLEASE CALL ) Diet: Other - See Diet Comment Diet Comment: Vegetarian (lacto-Ovo) Addtl Attending Provider Instructions: Follow-up with your primary care physician within a week time. Take medications as prescribed. Your diagnosed Covid positive on 10/30, maintain self-isolation at home for 20 days from diagnosis. Home Isolation COVID-19 Instructions The following information about Home Isolation is from the CDC Website: https://www.cdc.gov/coronavirus/2019-ncov/hcp/oixojhif-dthqepr-bnywar.html Stay home except to get medical care People who are mildly ill with COVID-19 are able to isolate at home during their illness. You should restrict activities outside your home, except for getting medical care. Do not go to work, school, or public areas. Avoid using public transportation, ride-sharing, or taxis. Separate yourself from other people and animals in your home People: As much as possible, you should stay in a specific room and away from other people in your home. Also, you should use a separate bathroom, if available. Animals: You should restrict contact with pets and other animals while you are sick with COVID-19, just like you would around other people. Although there have not been reports of pets or other animals becoming sick with COVID-19, it is still recommended that people sick with COVID-19 limit contact with animals until more information is known about the virus. When possible, have another member of your household care for your animals while you are sick. If you are sick with COVID-19, avoid contact with your pet, including petting, snuggling, being kissed or licked, and sharing food. If you must care for your pet or be around animals while you are sick, wash your hands before and after you interact with pets and wear a face mask. Call ahead before visiting your doctor If you have a medical appointment, call the healthcare provider and tell them that you have or may have COVID-19. This will help the healthcare provider�s office take steps to keep other people from getting infected or exposed. Wear a face mask You should wear a face mask when you are around other people (e.g., sharing a room or vehicle) or pets and before you enter a healthcare provider�s office. If you are not able to wear a face mask (for example, because it causes trouble breathing), then people who live with you should not stay in the same room with you, or they should wear a face mask if they enter your room. Cover your coughs and sneezes Cover your mouth and nose with a tissue when you cough or sneeze. Throw used tissues in a lined trash can. Immediately wash your hands with soap and water for at least 20 seconds or, if soap and water are not available, clean your hands with an alcohol-based hand metal crafts teacher that contains at least 60% alcohol. Clean your hands often Wash your hands often with soap and water for at least 20 seconds, especially after blowing your nose, coughing, or sneezing; going to the bathroom; and before eating or preparing food. If soap and water are not readily available, use an alcohol-based hand metal crafts teacher with at least 60% alcohol, covering all surfaces of your hands and rubbing them together until they feel dry. Soap and water are the best option if hands are visibly dirty. Avoid touching your eyes, nose, and mouth with unwashed hands. Avoid sharing personal household items You should not share dishes, drinking glasses, cups, eating utensils, towels, or bedding with other people or pets in your home. After using these items, they should be washed thoroughly with soap and water. Clean all �high-touch� surfaces everyday High touch surfaces include counters, tabletops, doorknobs, bathroom fixtures, toilets, phones, keyboards, tablets, and bedside tables. Also, clean any surfaces that may have blood, stool, or body fluids on them. Use a household cleaning spray or wipe, according to the label instructions. Labels contain instructions for safe and effective use of the cleaning product including precautions you should take when applying the product, such as wearing gloves and making sure you have good ventilation during use of the product. Monitor your symptoms Seek prompt medical attention if your illness is worsening (e.g., difficulty breathing).�Before�seeking care, call your healthcare provider and tell them that you have, or are being evaluated for, COVID-19. Put on a face mask before you enter the facility. These steps will help the healthcare provider�s office to keep other people in the office or waiting room from getting infected or exposed. Ask your healthcare provider to call the local or state health department. Persons who are placed under active monitoring or facilitated self- monitoring should follow instructions provided by their local health department or occupational health professionals, as appropriate. When working with your local health department check their available hours. If you have a medical emergency and need to call 911, notify the dispatch personnel that you have, or are being evaluated for COVID-19. If possible, put on a face mask before emergency medical services arrive. Discontinuing home isolation Patients with confirmed COVID-19 should remain under home isolation precautions until the risk of secondary transmission to others is thought to be low. The decision to discontinue home isolation precautions should be made on a [id number] basis, in consultation with healthcare providers and state and local health departments. Pending Studies at Discharge: No Stand-Alone Forms: My [facility] [place], Smoking Cessation Medications and DC Order Prescriptions: New atorvastatin 40 mg Tablet 40 mg PO QAM Qty: 30 RF: 0 aspirin 81 mg Tablet,Delayed Release (Dr/Ec) 81 mg PO QAM Qty: 30 RF: 0 Continued celecoxib 200 mg capsule 200 mg PO DAILY RF: 0 alendronate 70 mg tablet 70 mg PO WK RF: 0 benzonatate 100 mg capsule 100 mg PO DAILY PRN (Reason: Cough) RF: 0 levothyroxine 125 mcg tablet 125 mcg PO DAILY RF: 0 albuterol sulfate 90 mcg/actuation HFA aerosol inhaler 2 puff INHALATION DAILY RF: 0 ondansetron 4 mg tablet,disintegrating 4 mg PO DAILY PRN (Reason: Nausea) RF: 0 Discharge Orders: Discharge Order (Routine); Ordered 11/07/21 Ordered By: Chanel Meade/Other Patient Handouts: Prediabetes, 5 Steps for Eating Healthier Admission Data Admit Date/Time: 10/30/21 10:01 Attending Provider: Chanel Hopkins Admit Provider: Ankur Alcaraz Primary Care Provider: Sandy Laboy Other Providers: Ankur Alcaraz ; Maxine Sloan ; Rip Schmidt ; Maxine Lacey ; Darryl Dunlap ; Sharonda Tam Other Interventions: Discharge Summary Assessment (RN) Last Done: 11/07/21 15:52
== END 2021-11-07 18:19 | disposition home or self-care (01) | DRG 177 ==
LOC: ED 07:15 → SUATTDRO 10:01 → EDINP 10:01 → 2W 15:00 → 2E 11-01 07:33 → 2S 11-02 10:42
DX: J12.82 Pneumonia due to coronavirus disease 2019; Z83.3 Family history of diabetes mellitus; Z91.040 Latex allergy status; R20.0 Anesthesia of skin; L40.50 Arthropathic psoriasis, unspecified; U07.1 COVID-19; Z88.5 Allergy status to narcotic agent; Z87.891 Personal history of nicotine dependence; G45.9 Transient cerebral ischemic attack, unspecified; E03.9 Hypothyroidism, unspecified; J96.01 Acute respiratory failure with hypoxia